=== PATIENT | male | born 1950 | race Caucasian/White ===

== ENCOUNTER 2023-12-10 21:26 | Inpatient (IN) | payer MEDICARE, MEDICAID, SELFPAY ==
[2023-12-10] VITALS (11 sets, daily range): BP systolic 76–107; BP diastolic 55–66; PULSE 93–104; RESP 14–24; TEMP 35.4; O2SAT 92–99; BMI 15.2
--- NOTE | 2023-12-10 21:34 | ECG_ITS ---
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 Measurements Intervals [place] Rate: 97 P: 72 KS: 149 QRS: 77 QRSD: 82 T: 73 QT: 350 QTc: 445 Interpretive Statements SINUS RHYTHM LEFT VENTRICULAR HYPERTROPHY AND ST-T CHANGE [VOLTAGE CRITERIA PLUS ST/T ABNORMALITY] No previous ECG available for comparison Electronically Signed On 12-11-2023 7:57:13 CDT by Bruce Romero M.D. [id number]
[2023-12-10 22:15] LABS: Basophils % 0.2 %; Lymphocytes # 0.2 10^3/uL (0.8-4.8); Lymphocytes % 1.3 %; Mean Corpuscular HGB Conc 33.7 g/dL (30-55); Mean Corpuscular Hemoglobin 33.2 pg (27-33); Mean Corpuscular Volume 98.5 fl (82-101); Mean Platelet Volume 9.2 fL (7.4-10.4); Monocytes # 0.7 10^3/uL (0.2-0.9); Monocytes % 4.8 %; Neutrophils % 93.4 %; Nucleated Red Blood Cells % 0.3 %; Platelet Count 330 10^3/cmm (157-399); Red Blood Count 2.74 10^6/uL (3.85-5.65); Red Cell Distribution Width 16.1 % (12.1-15.1)
--- NOTE | 2023-12-10 22:15 | W.ED.GIBLEED ---
HPI - GI Bleed General: Chief complaint: GI Bleed Stated complaint: Fall, Found Down Time Seen by Provider: 12/10/23 21:27 History of Present Illness: Patient presents to the ER by EMS from home. Patient was found on the floor by the granddaughter had not seen in about 12 days. Per EMS patient was weak, had a low blood pressure, and had a 1 bowel movement as a dark and tarry stool on route. Patient was given a total of 2 L before arrival here. Patient's blood pressure upon arrival was 76/57, pulse 97, Related Data Allergies Allergy/AdvReac Type Severity Reaction Status Date / Time Sulfa (Sulfonamide Allergy Unknown Verified 12/10/23 21:37 Antibiotics) Physical Exam Const: COMMON NORMALS: no acute distress, average body habitus, patient oriented x3, no limitations, healthy appearing, alert and well nourished HENMT: COMMON NORMALS: normocephalic, atraumatic, hearing grossly normal bilaterally, external ears normal, Normal external nose present and moist oral mucous membranes HEAD & SCALP: normocephalic and atraumatic NOSE: Normal external nose present EXTERNAL EAR: Yes external ears normal Eye: COMMON NORMALS: Equal, round and reactive pupils present, EOMs intact bilaterally, conjunctivae normal and no scleral icterus CONJUNCTIVA: Yes conjunctivae normal PUPIL: Yes Equal, round and reactive pupils present Neck/C-Spine: COMMON NORMALS: no JVD Chest: COMMONS NORMALS: normal inspection of the chest and normal palpation of entire chest wall Resp: COMMON NORMALS: normal respiratory effort, No retractions, No use of accessory muscles and clear to auscultation bilaterally AUSCULTATION: clear to auscultation bilaterally Cardio: COMMON NORMALS: no JVD, regular rate, regular rhythm, S1 normal heart sound present, S2 normal heart sound present, No gallops present (Cardio), No clicks present (Cardio), No murmurs present (Cardio) and No rub (Cardio) RATE: regular rate RHYTHM: regular rhythm HEART SOUNDS: S1 normal heart sound present and S2 normal heart sound present GI: COMMON NORMALS: Soft to palpation, No hepatosplenomegaly present and no masses; negative for non-tender (distended urinary bladder tender to palpate) PALPATION: Yes Soft to palpation and Yes No hepatosplenomegaly present Neuro: COMMON NORMALS: patient oriented x3 SENSORIUM/ORIENTATION: Yes alert Course Vital Signs: Vital signs: Vital Signs Temperature 95.7 F L 12/10/23 21:28 Pulse Rate 98 12/11/23 01:30 Respiratory Rate 18 12/11/23 01:30 Blood Pressure 84/59 12/11/23 01:30 Pulse Oximetry 95 12/11/23 01:30 Oxygen Delivery Me thod Room Air 12/11/23 00:00 MDM - GI Bleed Medical Decision Making Discussed this case with Dr. Mcdermott urology at [facility] he feels this is not a stent candidate patient he feels the hydronephrosis and hydroureter is probably from a distended bladder and probably a prostate issue and therefore a Santoyo catheter that is already been placed for initial time being. He says BUN/creatinine will more likely come down once the Santoyo catheter was placed. Discussed this case with Dr. Doshi we will place patient in ICU for further evaluation and treatment. Medical Records I reviewed the patient's medical records. Lab Data I reviewed the patient's lab results. 12/10/23 22:08 12/10/23 22:08 Radiology Impressions Chest/Abdomen/Pelvis CT 12/10/23 22:45 IMPRESSION: 1. Mild wall thickening involving the esophagus likely inflammatory. 2. COPD/emphysema. 3. Linear scarring or atelectasis involving the right upper lobe right middle lobe. 4. Tree-in-bud type opacity involving the right lower lobe likely inflammatory in origin. 5. Small pulmonary nodules bilaterally. For patients at low risk (minimal or absent history of smoking and of other known risk factors), no routine follow-up is indicated. For patients at high risk (history of smoking or of other known risk factors), consider optional CT Chest at 12 months. IMPRESSION: 1. Possible nodular wall thickening involving the rectum on the right laterally. If patient has not had a recent colonoscopy, further evaluation with endoscopy would be recommended. 2. Abnormal soft tissue in the presacral fat suspicious for tumor. There is also bilateral iliac chain and inguinal adenopathy likely pathologic. 3. Bilateral nephrolithiasis. 4. Bilateral mild hydronephrosis and hydroureter extending to a distended urinary bladder. There is a Santoyo catheter within the bladder. As well as a small bladder stone on the right. Head CT 12/10/23 23:03 IMPRESSION: 1. Negative for intracranial hemorrhage or mass effect. 2. Moderate diffuse white matter disease likely reflecting chronic microvascular ischemic changes. 3. Paranasal sinus opacification. Laboratory Results WBC 13.60 10^3/uL (3.29-11.43) H 12/10/23 22:08 RBC 2.74 10^6/uL (3.85-5.65) L 12/10/23 22:08 Hgb 9.10 g/dL (11.27-16.99) L 12/10/23 22:08 Hct 27.0 % (37-53) L 12/10/23 22:08 MCV 98.5 fl (82-101) 12/10/23 22:08 MCH 33.2 pg (27-33) H 12/10/23 22:08 MCHC 33.7 g/dL (30-55) 12/10/23 22:08 RDW 16.1 % (12.1-15.1) H 12/10/23 22:08 Plt Count 330 10^3/cmm (157-399) 12/10/23 22:08 MPV 9.2 fL (7.4-10.4) 12/10/23 22:08 Neut % (Auto) 93.4 % 12/10/23 22:08 Lymph % (Auto) 1.3 % 12/10/23 22:08 [place] % (Auto) 4.8 % 12/10/23 22:08 Eos % (Auto) 0.0 % 12/10/23 22:08 Baso % (Auto) 0.2 % 12/10/23 22:08 Neut # (Auto) 12.70 10^3/uL (1.8-7.7) H 12/10/23 22:08 Lymph # (Auto) 0.2 10^3/uL (0.8-4.8) L 12/10/23 22:08 [place] # (Auto) 0.7 10^3/uL (0.2-0.9) 12/10/23 22:08 Eos # (Auto) 0.0 10^3/uL (0.0-0.8) 12/10/23 22:08 Baso # (Auto) 0.0 10^3/uL (0.0-0.1) 12/10/23 22:08 Nucleated RBC % (auto) 0.3 % 12/10/23 22:08 Nucleated RBCs # 0.0 /100WBC 12/10/23 22:08 PT 15.30 SECONDS (12.1-14.9) H 12/10/23 22:08 INR 1.17 (0.8-1.2) 12/10/23 22:08 Sodium 152 mmol/L (136-145) H 12/10/23 22:08 Potassium 4.7 mmol/L (3.5-5.1) 12/10/23 22:08 Chloride 113 mmol/L (98-107) H 12/10/23 22:08 Carbon Dioxide 19 mmol/L (22-29) L 12/10/23 22:08 Anion Gap 24.7 (5-19) H 12/10/23 22:08 BUN 160 mg/dL (8-23) H* 12/10/23 22:08 Creatinine 7.8 mg/dL (0.7-1.2) H* 12/10/23 22:08 GFR Calculation Not Reportable 12/10/23 22:08 Glucose 98 mg/dL (65-115) 12/10/23 22:08 Calculated Osmolality 367 mOsm/kg (285-295) H 12/10/23 22:08 Lactic Acid 1.1 mmol/L (0.5-2.2) 12/10/23 22:08 Calcium 9.7 mg/dL (8.5-10.5) 12/10/23 22:08 Phosphorus 5.9 mg/dL (2.5-4.5) H 12/10/23 22:08 Magnesium 3.1 mg/dL (1.7-2.3) H 12/10/23 22:08 Total Bilirubin 0.4 mg/dL (0.15-1.2) 12/10/23 22:08 AST 35 U/L (0-40) 12/10/23 22:08 ALT 21 U/L (0-41) 12/10/23 22:08 Alkaline Phosphatase 53 U/L (40-130) 12/10/23 22:08 Creatine Kinase 600 U/L (39-308) H* 12/10/23 22:08 Troponin T Baseline 216 ng/L (0-15) H* 12/10/23 22:08 Troponin T 120 Minute 212.8 ng/L (0-15) H 12/11/23 00:24 Delta Troponin T -3.2 ABS# (0-10) L 12/11/23 00:24 Total Protein 5.5 g/dL (6.6-8.7) L 12/10/23 22:08 Albumin 3.0 g/dL (3.5-5.2) L 12/10/23 22:08 Globulin 2.5 g/dL (1.3-4.6) 12/10/23 22:08 Procalcitonin 0.43 ng/mL (0-0.5) 12/10/23 22:08 Urine Color Yellow (Yellow) 12/10/23 22:08 Urine Appearance Slightly cloudy (CLEAR) 12/10/23 22:08 Urine pH 5 (5-7) 12/10/23 22:08 Ur Specific [place] 1.020 (1.005-1.030) 12/10/23 22:08 Urine Protein Neg (Negative) 12/10/23 22:08 Urine Glucose (UA) Norm (Normal) 12/10/23 22:08 Urine Ketones 1+ (Negative) H 12/10/23 22:08 Urine Blood 3+ (Negative) H 12/10/23 22:08 Urine Nitrate Negative (Negative) 12/10/23 22:08 Urine Bilirubin Neg (Negative) 12/10/23 22:08 Urine Urobilinogen Neg mg/dL (Negative) 12/10/23 22:08 Ur Leukocyte Esterase Negative (Negative) 12/10/23 22:08 Urine RBC 25-40 /hpf (0-2) H 12/10/23 22:08 Urine WBC 5-10 /hpf (0-5) H 12/10/23 22:08 Ur Squamous Epith Cells None /hpf (0-5) 12/10/23 22:08 Amorphous Sediment Not Reportable 12/10/23 22:08 Urine Bacteria None /hpf (NONE) 12/10/23 22:08 All radiology interpretation(s) finalized by discharge Discharge Plan Discharge Patient Disposition: Admitted As Inpatient Clinical Impression: Acute GI bleeding, Acute renal failure, Acute dehydration, Hypernatremia, Anemia, Rhabdomyolysis, Elevated troponin Condition: Stable Coding Level of Care Code ED Seismograph Supervisor for Hardik Underwood
[2023-12-10 22:28] LABS: Add Urine Microscopic? YES; Bilirubin Urine Neg (Negative); Blood Urine 3+ (Negative); Glucose Urine UA Norm (Normal); Ketones Urine 1+ (Negative); Leukocyte Esterase Urine Negative (Negative); Nitrate Urine Negative (Negative); Protein Urine Neg (Negative); RBC Urine 25-40 /hpf (0-2); Urine Appearance Slightly Cloudy (CLEAR); Urine Color Yellow (Yellow); Urobilinogen Urine Neg (Negative); pH Urine 5 (5-7)
[2023-12-10 22:29] LABS: Add Urine Culture? Yes
[2023-12-10 22:35] LABS: Alanine Aminotransferase 21 U/L (0-41); Alkaline Phosphatase 53 U/L (40-130); Anion Gap 24.7 (5-19); Aspartate Amino Transferase 35 U/L (0-40); Calcium 9.7 mg/dL (8.5-10.5); Carbon Dioxide 19 mmol/L (22-29); Chloride 113 mmol/L (98-107); Globulin 2.5 g/dL (1.3-4.6); Glucose 98 mg/dL (65-115); Magnesium 3.1 mg/dL (1.7-2.3); Phosphorus 5.9 mg/dL (2.5-4.5); Potassium 4.7 mmol/L (3.5-5.1); Sodium 152 mmol/L (136-145); Total Bilirubin 0.4 mg/dL (0.15-1.2); Total Protein 5.5 g/dL (6.6-8.7)
[2023-12-10 22:37] LABS: Lactic Sepsis W/Reflex 1.1 mmol/L (0.5-2.2)
[2023-12-10 22:41] LABS: Creatine Phosphokinase 600 U/L (39-308); Troponin(5th) Baseline 216 ng/L (0-15)
[2023-12-10 22:42] LABS: Procalcitonin 0.43 ng/mL (0-0.5)
--- NOTE | 2023-12-10 22:45 | CTR_ITS ---
PROCEDURE INFORMATION: Exam: CT Chest Without Contrast; Diagnostic Exam date and time: 12/10/2023 11:09 PM Age: 73 years old Clinical indication: Other: Anemia; Other: Hypotensiom; Additional info: Anemia, gi bleed, acute renal failure, hypotension TECHNIQUE: Imaging protocol: Diagnostic computed tomography of the chest without contrast. Radiation optimization: All CT scans at this facility use at least one of these dose optimization techniques: automated exposure control; mA and/or kV adjustment per patient size (includes targeted exams where dose is matched to clinical indication); or iterative reconstruction. COMPARISON: No relevant prior studies available. RADIATION DOSE METRICS: Total DLP (mGy-cm): 422 FINDINGS: Lungs: There are changes of COPD/emphysema. There is linear scarring or atelectasis involving the right upper lobe and right middle lobe. There is tree-in-bud type opacity involving the right lower lobe likely inflammatory in nature. There is a pulmonary nodule involving the right lower lobe (series 3 image 36) measuring 3 mm in size. There is a fissural nodule involving the left lower lung measuring 5.3 mm in size (series 3, image 32). Pleural spaces: Unremarkable. No pneumothorax. No pleural effusion. Heart: Unremarkable. No cardiomegaly. No pericardial effusion. Esophagus: There is mild wall thickening involving the esophagus likely inflammatory. Lymph nodes: There are a few calcified mediastinal and hilar lymph nodes. Vasculature: The thoracic aorta is normal in caliber. There is calcified plaque involving the aorta and coronary vessels. Bones/joints: Unremarkable. No acute fracture. Soft tissues: Unremarkable. (Reference: Tanya) References: Tanya Tidwell, et al. Guidelines for Management of Incidental Pulmonary Nodules Detected on CT Images: From the Fleischner Society 2017. Radiology. 2017;284(1):228-243. COMMENTS: The presence of pulmonary emphysema on CT is an independent risk factor for lung cancer. In the absence of a history or active diagnosis of lung cancer, it is recommended that this patient with emphysema be evaluated for enrollment in a low dose CT lung cancer screening program. PROCEDURE INFORMATION: Exam: CT Abdomen And Pelvis Without Contrast Exam date and time: 12/10/2023 11:09 PM Age: 73 years old Clinical indication: Other: Anemia; Other: Hypotensiom; Additional info: Anemia, gi bleed, acute renal failure, hypotension TECHNIQUE: Imaging protocol: Computed tomography of the abdomen and pelvis without contrast. Radiation optimization: All CT scans at this facility use at least one of these dose optimization techniques: automated exposure control; mA and/or kV adjustment per patient size (includes targeted exams where dose is matched to clinical indication); or iterative reconstruction. COMPARISON: No relevant prior studies available. RADIATION DOSE METRICS: Total DLP (mGy-cm): 422 FINDINGS: Lungs: Please see report from CT thorax exam performed on same day for findings within the lower chest. Liver: Normal. No mass. Gallbladder and biliary ducts: Normal. No calcified stones. No ductal dilation. Pancreas: Normal. No ductal dilation. Spleen: Normal. No splenomegaly. Adrenal glands: Normal. No mass. Kidneys and ureters: There are bilateral nonobstructing renal calculi. There is mild hydronephrosis and hydroureter extending to a distended urinary bladder. Stomach and bowel: There are a few scattered colonic diverticula. No dilated loops of large or small bowel is appreciated. There may be nodular thickening involving the right lateral aspect of the rectum. If patient has not had a recent colonoscopy, further evaluation with colonoscopy or sigmoidoscopy would be recommended. Appendix: No evidence of appendicitis. Intraperitoneal space: Unremarkable. No free air. No significant fluid collection. Vasculature: Unremarkable. No abdominal aortic aneurysm. Lymph nodes: There is retroperitoneal and bilateral iliac chain adenopathy likely malignant. Urinary bladder: There is a Santoyo catheter within the urinary bladder. There may be a small 1 mm stone layering within the urinary bladder on the right. Reproductive: Unremarkable as visualized. Bones/joints: There are postoperative changes involving the proximal right femur. There are compression deformities involving T12 and L1 no blastic or lytic bony lesions are appreciated. Soft tissues: There is abnormal nodular soft tissue in the pre sacral soft tissues suspicious for tumor. CT/[place] [id number] IMPRESSION: 1. Mild wall thickening involving the esophagus likely inflammatory. 2. COPD/emphysema. 3. Linear scarring or atelectasis involving the right upper lobe right middle lobe. 4. Tree-in-bud type opacity involving the right lower lobe likely inflammatory in origin. 5. Small pulmonary nodules bilaterally. For patients at low risk (minimal or absent history of smoking and of other known risk factors), no routine follow-up is indicated. For patients at high risk (history of smoking or of other known risk factors), consider optional CT Chest at 12 months. IMPRESSION: 1. Possible nodular wall thickening involving the rectum on the right laterally. If patient has not had a recent colonoscopy, further evaluation with endoscopy would be recommended. 2. Abnormal soft tissue in the presacral fat suspicious for tumor. There is also bilateral iliac chain and inguinal adenopathy likely pathologic. 3. Bilateral nephrolithiasis. 4. Bilateral mild hydronephrosis and hydroureter extending to a distended urinary bladder. There is a Santoyo catheter within the bladder. As well as a small bladder stone on the right.
[2023-12-10 22:47] LABS: Osmolality Calculated 367 mOsm/kg (285-295)
[2023-12-10 22:48] LABS: Blood Urea Nitrogen 160 mg/dL (8-23)
[2023-12-10 22:50] LABS: INR 1.17 (0.8-1.2)
--- NOTE | 2023-12-10 23:03 | CTR_ITS ---
PROCEDURE INFORMATION: Exam: CT Head Without Contrast Exam date and time: 12/10/2023 11:06 PM Age: 73 years old Clinical indication: Altered mental status/memory loss; Additional info: AMS fall TECHNIQUE: Imaging protocol: Computed tomography of the head without contrast. Radiation optimization: All CT scans at this facility use at least one of these dose optimization techniques: automated exposure control; mA and/or kV adjustment per patient size (includes targeted exams where dose is matched to clinical indication); or iterative reconstruction. COMPARISON: No relevant prior studies available. RADIATION DOSE METRICS: Total DLP (mGy-cm): 1044 FINDINGS: Brain: Moderate diffuse white matter disease likely reflecting chronic microvascular ischemic changes. Cerebral ventricles: No ventriculomegaly. Paranasal sinuses: Paranasal sinus opacification. Mastoid air cells: Visualized mastoid air cells are well aerated. Bones: Unremarkable. No acute fracture. Soft tissues: Unremarkable. CT/CT head wo con* [id number] IMPRESSION: 1. Negative for intracranial hemorrhage or mass effect. 2. Moderate diffuse white matter disease likely reflecting chronic microvascular ischemic changes. 3. Paranasal sinus opacification.
[2023-12-11] VITALS (62 sets, daily range): BP systolic 75–125; BP diastolic 44–77; PULSE 77–106; RESP 12–28; TEMP 36–36.6; O2SAT 95–100; BMI 16.2
[2023-12-11 01:26] LABS: Troponin 5 2HR Delta -3.2 ABS# (0-10)
[2023-12-11 01:27] LABS: Troponin 5 2HR 212.8 ng/L (0-15)
--- NOTE | 2023-12-11 02:13 | PM.HP ---
Providers/Chief Complaint Admitting Physician: Bteito Arellano MD Chief Complaint: Fall, Found Down History of Present Illness Bharat Buckley is a 73 year old male with a past medical history of HIV, history taking is difficult given patient's encephalopathy, deconditioning, who presents to [facility] for weakness, fatigue, malaise, being on the ground for possibly an entire week. Currently patient alert to person, not to place, to time, at times she does not follow commands, history taking is quite difficult as he is quite encephalopathic deconditioned very weak. He can answer yes or no questions at times but at other times she is quite encephalopathic, and confused. I cannot get a past medical history from him except that he says yes that he has HIV. He is not exactly clear if he is on treatment, and I cannot get as straightforward answer from him. I cannot get a past surgical history or family history or social history from him. There is no family members at bedside. According to ER provider, he has been on the ground for a prolonged period of time potentially a week. Patient lives at home with his , his daughter has not seen the family in over a week as she was on vacation. As per EMS, he had low blood pressures 1 dark tarry bowel movement. Was given 2 L bolus before arriving to ER. Blood pressure on arrival was 76/56, pulse is 97 Review of Systems General: Reports: ROS unobtainable due to mental status Medications/Allergies Allergies Allergy/AdvReac Type Severity Reaction Status Date / Time Sulfa (Sulfonamide Allergy Unknown Verified 12/10/23 21:37 Antibiotics) Vitals/I&O/Wt Last Vital Signs Temp 95.7 F L 12/10/23 21:28 Pulse 98 12/11/23 02:00 Resp 20 H 12/11/23 02:00 BP 96/58 12/11/23 02:00 Pulse Ox 98 12/11/23 02:00 O2 Del Method Room Air 12/11/23 02:00 Weight last 48 hrs Weight 45.359 kg Physical Exam Const: COMMON NORMALS: no acute distress OTHER: Evidence of severe protein calorie malnutrition, bilateral temporal muscle wasting, muscle wasting of bilateral arms, bilateral shoulders, bilateral thighs, fat pad thickening bilateral clavicles, ribs, HENMT: COMMON NORMALS: normocephalic HEAD & SCALP: normocephalic Eye: COMMON NORMALS: Equal, round and reactive pupils present Neck/C-Spine: COMMON NORMALS: no JVD Resp: COMMON NORMALS: normal respiratory effort, No retractions, No use of accessory muscles and clear to auscultation bilaterally AUSCULTATION: clear to auscultation bilaterally Cardio: COMMON NORMALS: no JVD, regular rate, regular rhythm, S1 normal heart sound present and S2 normal heart sound present RATE: regular rate RHYTHM: regular rhythm HEART SOUNDS: S1 normal heart sound present and S2 normal heart sound present GI: COMMON NORMALS: Normal to inspection, nondistended, normoactive bowel sounds present, Soft to palpation and non-tender Extremity: COMMON NORMALS: no calf tenderness and no pedal edema Urinary Catheter Management: Santoyo Latex: Cath Placed During This Visit: yes Urinary Catheter Date of Insertion: 12/10/23 Urinary Catheter Time of Insertion: 21:50 Data 12/10/23 22:08 12/10/23 22:08 Micro: Microbiology 12/10/23 22:32 Blood Culture - Preliminary Blood SPECIMEN COLLECTED 12/10/23 22:27 Blood Culture - Preliminary Blood SPECIMEN COLLECTED A&P Assessment and plan (1) Elevated troponin: (2) GI bleed: (3) Acute renal failure: Qualifiers: Acute renal failure type: unspecified Qualified Code(s): N17.9 - Acute kidney failure, unspecified (4) Acute dehydration: (5) Hypernatremia: (6) Anemia: Qualifiers: Anemia type: unspecified type Qualified Code(s): D64.9 - Anemia, unspecified (7) Rhabdomyolysis: Qualifiers: Encounter type: initial encounter (8) HIV disease: (9) UTI (urinary tract infection): (10) Encephalopathy: (11) Uremia: (12) Metabolic acidosis: Plan Acute encephalopathy ? This likely multifactorial ? Likely secondary to UTI ? Likely secondary to uremic encephalopathy -Hypernatremia ? Neurochecks ? NIH stroke scale ? Aspiration precautions ? Keep n.p.o. Uremic encephalopathy Acute renal failure, creatinine 7.8 ? Multifactorial ? Secondary to dehydration ? Secondary to fall ? Secondary to BPH, distended bladder, postobstructive ? Monitor creatinine, monitor uremia ? Continue IV fluids ? Monitor urine output ? Will consider discussing with nephrology Bilateral nonobstructing renal colliculi, with mild hydronephrosis and hydroureter Kidneys and ureters: There are bilateral nonobstructing renal calculi. There is mild hydronephrosis and hydroureter extending to a distended urinary bladder. - Bilateral nephrolithiasis ?These findings were discussed with urology by ER provider, recommended medical management Acute hypernatremia ? Secondary dehydration Metabolic acidosis -Likely secondary to renal failure ? Continue IV fluids Acute GI bleed ? With uremia ? With no anemia -Black tarry stool -CT scan shows 1. Possible nodular wall thickening involving the rectum on the right laterally. If patient has not had a recent colonoscopy, further evaluation with endoscopy would be recommended. 2. Abnormal soft tissue in the presacral fat suspicious for tumor. There is also bilateral iliac chain and inguinal adenopathy likely pathologic. ? Plan ? Continue Protonix 40 IV twice daily -Continue Carafate ? Continue IV fluids ? Continue IV fluids ? Keep n.p.o. UTI, continue Rocephin History of HIV ? Unsure if patient is receiving treatment, his last CD4 count ? Obtain CD4 count, ? Will reach out to patient's family pharmacy in the morning Rhabdomyolysis, IV fluids . Elevated troponins, serial EKGs, serial troponins, telemetry monitoring Full code As for DVT prophylaxis, Lovenox relatively contraindicated given GI bleed Attestations Medical Necessity Statement*: Patient requires hospitalization, inpatient, greater than 2 midnights for acute kiko, UTI al failure, uremia, metabolic acidosis, acute anemia, hyponatremia, acute GI bleed, anemia, acute encephalopathy Diagnoses Elevated troponin R79.89 GI bleed K92.2 Acute renal failure N17.9 Acute renal failure type: unspecified Acute dehydration E86.0 Hypernatremia E87.0 Anemia D64.9 Anemia type: unspecified type Rhabdomyolysis M62.82 Encounter type: initial encounter HIV disease B20 UTI (urinary tract infection) N39.0 Encephalopathy G93.40 Uremia N19 Metabolic acidosis E87.20
--- NOTE | 2023-12-11 02:44 | US_ITS ---
WS: [id number] RENAL ULTRASOUND HISTORY: tyler COMPARISON: CT 12/10/2023 TECHNIQUE: 2-D and color Doppler imaging of the kidney submitted. Right kidney: 10.2 cm x 3.0 cm x 3.3 cm. Cortex: 0.7 cm Increased echogenicity with cortical thinning. There is a small amount of fluid in the pelvis. No troy ss hydronephrosis. Left kidney: 9.6 cm x 3.7 cm x 4.8 cm. Cortex: 1.5 cm Mildly enlarged kidney with mild hydronephrosis. Increased echogenicity throughout the kidney with a lobulated cortex. Aorta: Normal. Urinary Bladder: Santoyo catheter in position. Urinary bladder is not distended. US/US renal BI* [id number] IMPRESSION: 1. Chronic medical renal disease. Echogenic kidneys with no mass identified. 2. Mild LEFT hydronephrosis. Minimal splitting of the RIGHT renal pelvis. The hydronephrosis seen on the CT has decreased as visualized by ultrasound. This m ay be due to catheterization and emptying of the urinary bladder.
--- NOTE | 2023-12-11 02:44 | USCV_ITS ---
Bharat Buckley Age: 73 Gender: M : 1950 Exam Date: 12/11/2023 07:26 Ordering Phys: Betito Arellano MD Technologist: Exam Location: [facility] [place] Indication: nstemi BP: 96 / 50 HR: 72 Rhythm: Sinus Technical Quality: Adequate MEASUREMENTS (Male / Female) Normal Values 2D ECHO LV Diastolic Diameter PLAX 2.8 cm 4.2 - 5.9 / 3.9 - 5.3 cm IVS Diastolic Thickness 1.1 cm 0.6 - 1.0 / 0.6 - 0.9 cm IVS Systolic Thickness 1.1 cm LVPW Diastolic Thickness 1.0 cm 0.6 - 1.0 / 0.6 - 0.9 cm LVPW Systolic Thickness 1.4 cm LVOT Diameter 2.1 cm LV Ejection Fraction 2D Teich 76.2 % LV Ejection Fraction MOD 4C 76.7 % LV Ejection Fraction MOD 2C 63.9 % LV Ejection Fraction 2C AL 63.5 % LA Diameter 2.9 cm RA Systolic Volume 4C AL 19.1 ml RA Systolic Volume 4C MOD 17.5 ml Aorta at Sinotubular Diameter 2.6 cm M-MODE LA Ao Ratio MM 1.1 AV Cusp Separation MM 2.6 cm DOPPLER AV Peak Velocity 207.0 cm/s MV Peak Velocity 256.7 cm/s MV Area PHT 5.1 cm squared Mitral E to A Ratio 0.7 TR Peak Velocity 395.0 cm/s TR Peak Gradient 62.4 mmHg TV Peak E Velocity 150.0 cm/s Right Atrial Pressure 3.0 mmHg Pulmonary Artery Systolic Pressu 65.4 mmHg FINDINGS Left Ventricle Normal left ventricular size and systolic function, EF 77% .mild left ventricular hypertrophy. No regional wall motion abnormalities. Grade I/IV diastolic dysfunction (abnormal relaxation filling pattern), normal to mildly elevated filling pressures. Right Ventricle The right ventricle is normal in size and function. Right Atrium The right atrium is normal in size. Left Atrium Mildly increased left atrial size. Mitral Valve Moderate-severe mitral valve regurgitation. The leaflets appear to be redundant Aortic Valve Mild aortic valve regurgitation. Tricuspid Valve No gross abnormalities noted Pulmonic Valve No gross abnormalities noted Pericardium Normal pericardium without effusion. Aorta Normal ascending aorta dimension. IVC Inferior vena cava not visualized. CONCLUSIONS Normal left ventricular size and systolic function, EF 77% .mild left ventricular hypertrophy. No regional wall motion abnormalities. Grade I/IV diastolic dysfunction (abnormal relaxation filling pattern), normal to mildly elevated filling pressures. Moderate-severe mitral valve regurgitation. Mitral leaflets appear redundant. Mildly increased left atrial size. There is no pericardial effusion. There are no intracardiac masses. No similar previous studies are available for comparison Dr Stacey Randolph MD [facility] (Electronically Signed) Final Date: 11 December 2023 13:31 S
[2023-12-11 02:54] LABS: Erythrocyte Sedimentation Rate 25 mm/hr (0-10)
[2023-12-11 03:01] LABS: Partial Thromboplastin Time 32.4 SECONDS (23.9-36.7)
[2023-12-11 03:22] LABS: Chol HDL Ratio 3.21 mg/dL (1.0-5.00); Cholesterol 109 mg/dL (0-200); HDL Cholesterol 34 mg/dL (60-100); LDL Cholesterol Calculated 49 mg/dL (50-129); LDL HDL Ratio 1.44 RATIO (0.00-3.22); Thyroid Stimulating Hormone 1.38 uIU/mL (0.27-4.20); Triglycerides 128 mg/dL (0-150)
[2023-12-11 03:23] LABS: Creatine Phosphokinase 818 U/L (39-308)
[2023-12-11 03:27] LABS: Estmated Average Glucose 105; Hemoglobin A1C 5.3 % (4.0-6.0)
[2023-12-11] MEDS: cefTRIAXone 1,000 mg SDV 1000 MG IVP (03:34)
[2023-12-11] MEDS: pantoprazole 40 mg SDV IVP ×2 (03:34→14:15)
[2023-12-11] MEDS: dextrose 5%-sod chloride 0.9% 1,000 ML 125 ML IV (03:34)
--- NOTE | 2023-12-11 03:34 | ECG_ITS ---
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 Measurements Intervals [place] Rate: 98 P: 76 MD: 156 QRS: 81 QRSD: 78 T: 85 QT: 336 QTc: 430 Interpretive Statements SINUS RHYTHM WITH OCCASIONAL SUPRAVENTRICULAR PREMATURE COMPLEXES MODERATE VOLTAGE CRITERIA FOR LVH, CONSIDER NORMAL VARIANT [MEETS CRITERIA IN ONE OF: R(aVL), S(V1), R(V5), R(V5/V6)+S(V1)] Compared to ECG 12/10/2023 22:09:15 ST (T wave) deviation no longer present Electronically Signed On 12-11-2023 7:58:49 CDT by Bruce Romero M.D. [email or web address]
[2023-12-11] MEDS: sucralfate 1 gm/10 mL Oral Liq UDC PO ×4 (03:35→19:44)
[2023-12-11 03:38] LABS: Hepatitis A Antibody IgM Non-Reactive (Nonreactive); Hepatitis B Core IgM Non-Reactive (Nonreactive); Hepatitis B Surface Antigen Non-Reactive (Nonreactive); Hepatitis C Virus Antibody Non-Reactive (Nonreactive)
[2023-12-11 04:07] LABS: HIV 1 & 2 Antibody Reactive (Non-Reactiv); HIV 1 & 2 Antigen Non-Reactive (Non-Reactiv)
[2023-12-11 04:31] LABS: Troponin 5 6HR Delta 7.8 ng/L (0-12)
[2023-12-11 05:01] LABS: Troponin 5 6HR 223.8 ng/L (0-15)
[2023-12-11] MEDS: sodium chloride 0.9% 500 ML 999 ML IV (06:14)
--- NOTE | 2023-12-11 06:44 | PC.NURSE ---
Contacted Dr. Arellano aprox. 0600 in reference to patient's declining BP and MAP 60-65 for several readings. Informed Dr. Arellano that stroke volume index 29.7% as measured with Cheetah device. Received orders for 500mL NS bolus now.
[2023-12-11 09:31] LABS: Hematocrit 25.5 % (37-53)
[2023-12-11] MEDS: dextrose 5%-sod chloride 0.45% 1,000 ML 100 ML IV ×2 (09:35→19:41)
[2023-12-11] MEDS: piperacillin-tazobactam 3.375 GM in sodium chloride 0.9% (plus) 50 ML IV ×2 (09:38→21:05)
[2023-12-11 09:58] LABS: Sodium 163 mmol/L (136-145)
--- NOTE | 2023-12-11 10:10 | ANES.PREANE2 ---
Pre-Anesthetic Assessment Height/Weight: Height 5 ft 3 in Weight 91 lb 7.869 oz Temp Pulse Resp BP Pulse Ox O2 Del Method 96.8 F L 95 25 H 82/59 99 Room Air 12/11/23 09:39 12/11/23 08:30 12/11/23 08:30 12/11/23 08:30 12/11/23 08:30 12/11/23 08:30 Preop Diagnosis: Concern for GI bleed Operation Date: 12/11/23 12:15 Proposed Procedures p EGD with possible bleeding control(Not Applicable) - Corwin Muhammad MD Anesthetic Plan ASA status: 4 Anesthesia: MAC Other: Patient has a history of HIV Current encephalopathy/deconditioning. Patient was found on the ground, possibly for an entire week Hard to get a history on the patient Labs reviewed, hemoglobin 8.4, sodium 163. Creatinine 7.8, BUN 160, CK8 18. Patient has elevated troponins EKG showing sinus rhythm with PVCs Medications/Allergies Home Medications Medication Instructions Recorded Confirmed Last Taken Type abacavir 600 mg-dolutegravir 50 1 tab PO DAILY 12/11/23 12/11/23 Unknown History mg-lamivudine 300 mg tablet (Triumeq) ezetimibe 10 mg tablet 10 mg PO DAILY 12/11/23 12/11/23 Unknown History fenofibrate nanocrystallized 145 145 mg PO DAILY 12/11/23 12/11/23 Unknown History mg tablet lisinopril 10 mg tablet 10 mg PO DAILY 12/11/23 12/11/23 Unknown History Allergies Allergy/AdvReac Type Severity Reaction Status Date / Time Sulfa (Sulfonamide Allergy Unknown Verified 12/10/23 21:37 Antibiotics) Current Medications Generic Name Dose Route Start Last Admin Trade Name Freq PRN Reason Stop Dose Admin Ceftriaxone Sodium 1,000 mg 12/11/23 02:44 12/11/23 03:34 Ceftriaxone 1,000 Mg Sdv IVP 1,000 mg Q24H BYRON Administration Protocol Dextrose/Sodium Chloride 1,000 mls @ 100 mls/hr 12/11/23 09:00 12/11/23 09:35 Dextrose 5%-Sod Chloride 0.45% IV 100 mls/hr .Q10H BYRON Administration Piperacillin Sod/Tazobactam 50 mls @ 12.5 mls/hr 12/11/23 09:15 12/11/23 09:38 Sod 3.375 gm/ Sodium Chloride IV 12.5 mls/hr Q12H BYRON Administration Pantoprazole Sodium 40 mg 12/11/23 02:44 12/11/23 03:34 Pantoprazole 40 Mg Sdv IVP 40 mg Q12H BYRON Administration Sucralfate 1 gm 12/11/23 02:44 12/11/23 09:17 Sucralfate 1 Gm/10 Ml Oral Liq Udc PO 1 gm Q6H BYRON Administration Data Anesthesia 12/11/23 09:10 12/11/23 09:10 Short CBC 12/10/23 12/11/23 Range/Units 22:08 09:10 WBC 13.60 H (3.29-11.43) 10^3/uL Hgb 9.10 L 8.40 L (11.27-16.99) g/dL Hct 27.0 L 25.5 L (37-53) % MCV 98.5 (82-101) fl Plt Count 330 (157-399) 10^3/cmm Neut % (Auto) 93.4 % Neut # (Auto) 12.70 H (1.8-7.7) 10^3/uL BMP 12/10/23 12/11/23 22:08 09:10 Sodium 152 H 163 H* Potassium 4.7 Chloride 113 H Carbon Dioxide 19 L BUN 160 H* Creatinine 7.8 H* Glucose 98 Calcium 9.7 Cardiac Enzymes 12/10/23 12/11/23 12/11/23 Range/Units 22:08 00:24 02:19 Creatine Kinase 600 H* 818 H* (39-308) U/L Troponin T Baseline 216 H* (0-15) ng/L Troponin T 120 Minute 212.8 H (0-15) ng/L Delta Troponin T -3.2 L (0-10) ABS# Troponin T Hi Sens 6Hr (0-15) ng/L Troponin T Hi Sens 6Hr Delta (0-12) ng/L 12/11/23 Range/Units 03:55 Creatine Kinase (39-308) U/L Troponin T Baseline (0-15) ng/L Troponin T 120 Minute (0-15) ng/L Delta Troponin T (0-10) ABS# Troponin T Hi Sens 6Hr 223.8 H (0-15) ng/L Troponin T Hi Sens 6Hr Delta 7.8 (0-12) ng/L Liver Function 12/10/23 Range/Units 22:08 Total Bilirubin 0.4 (0.15-1.2) mg/dL AST 35 (0-40) U/L ALT 21 (0-41) U/L Alkaline Phosphatase 53 (40-130) U/L Albumin 3.0 L (3.5-5.2) g/dL Urine 12/10/23 Range/Units 22:08 Urine Color Yellow (Yellow) Urine Appearance Slightly cloudy (CLEAR) Urine pH 5 (5-7) Ur Specific [place] 1.020 (1.005-1.030) Urine Protein Neg (Negative) Urine Glucose (UA) Norm (Normal) Urine Ketones 1+ H (Negative) Urine Nitrate Negative (Negative) Urine Bilirubin Neg (Negative) Ur Leukocyte Esterase Negative (Negative) Urine RBC 25-40 H (0-2) /hpf Urine WBC 5-10 H (0-5) /hpf Coags 12/10/23 12/11/23 22:08 02:19 ESR 25 H PT 15.30 H 15.60 H INR 1.17 1.20 APTT 32.4 C-Reactive Protein 86.0 H Microbiology 12/10/23 22:32 Blood Culture - Preliminary Blood SPECIMEN COLLECTED 12/10/23 22:27 Blood Culture - Preliminary Blood SPECIMEN COLLECTED Cardiac Studies: No Data to Display
--- NOTE | 2023-12-11 10:25 | PC.NURSE ---
GI lab, [facility], called and given report on patient. Nurse attempted to called patient's daughter, PAZ left.
[2023-12-11 11:05] LABS: Calcium 9.1 mg/dL (8.5-10.5); Carbon Dioxide 19 mmol/L (22-29); Chloride 129 mmol/L (98-107); Glucose 123 mg/dL (65-115)
--- NOTE | 2023-12-11 11:12 | PC.NURSE ---
Consent for EGD obtained via phone from daughter.
[2023-12-11 11:18] LABS: Anion Gap 16.7 (5-19); Osmolality Calculated 376 mOsm/kg (285-295); Potassium 3.7 mmol/L (3.5-5.1)
[2023-12-11 11:20] LABS: Blood Urea Nitrogen 131 mg/dL (8-23); Sodium 161 mmol/L (136-145)
--- NOTE | 2023-12-11 11:33 | P.CONIM_ITS ---
Providers/Reason For Consult 2 Consulting Physician/Specialty*: General surgery Reason for Consult*: Upper GI bleeding Attending Physician: Deana Grossman MD History of Present Illness History of Present Illness Bharat Buckley is a 73 year old male with history of HIV who presents to the hospital after being found down by family member, he is unsure how long the patient was down, he was noted to have acidosis and rhabdomyolysis upon arrival. In addition he had black tarry stools multiple times and according to the patient he had seen some blood in the stool in the past. A CAT scan of the abdomen pelvis done in the ED showed no evidence of active bleeding at the level of the GI tract there are some irregularity in the posterior rectum. Review of Systems 2 General: Reports: ROS unobtainable due to medical condition Medications/Allergies Home Medications Medication Instructions Recorded Confirmed Last Taken Type abacavir 600 mg-dolutegravir 50 1 tab PO DAILY 12/11/23 12/11/23 Unknown History mg-lamivudine 300 mg tablet (Triumeq) ezetimibe 10 mg tablet 10 mg PO DAILY 12/11/23 12/11/23 Unknown History fenofibrate nanocrystallized 145 145 mg PO DAILY 12/11/23 12/11/23 Unknown History mg tablet lisinopril 10 mg tablet 10 mg PO DAILY 12/11/23 12/11/23 Unknown History Allergies Allergy/AdvReac Type Severity Reaction Status Date / Time Sulfa (Sulfonamide Allergy Unknown Verified 12/10/23 21:37 Antibiotics) Current Medications Generic Name Dose Route Start Last Admin Trade Name Freq PRN Reason Stop Dose Admin Ceftriaxone Sodium 1,000 mg 12/11/23 02:44 12/11/23 03:34 Ceftriaxone 1,000 Mg Sdv IVP 1,000 mg Q24H BYRON Administration Protocol Dextrose/Sodium Chloride 1,000 mls @ 100 mls/hr 12/11/23 09:00 12/11/23 09:35 Dextrose 5%-Sod Chloride 0.45% IV 100 mls/hr .Q10H BYRON Administration Piperacillin Sod/Tazobactam 50 mls @ 12.5 mls/hr 12/11/23 09:15 12/11/23 09:38 Sod 3.375 gm/ Sodium Chloride IV 12.5 mls/hr Q12H BYRON Administration Pantoprazole Sodium 40 mg 12/11/23 02:44 12/11/23 03:34 Pantoprazole 40 Mg Sdv IVP 40 mg Q12H BYRON Administration Sucralfate 1 gm 12/11/23 02:44 12/11/23 09:17 Sucralfate 1 Gm/10 Ml Oral Liq Udc PO 1 gm Q6H BYRON Administration Vitals/I&O/Wt Last Vital Signs Temp 96.8 F L 12/11/23 09:39 Pulse 95 12/11/23 08:30 Resp 25 H 12/11/23 08:30 BP 82/59 12/11/23 08:30 Pulse Ox 99 12/11/23 08:30 O2 Del Method Room Air 12/11/23 08:30 12/10/23 12/11/23 12/11/23 22:59 06:59 14:59 Intake Total 1252.083 / 1252.083 Balance 1252.083 / 1252.083 Weight last 48 hrs Weight 91 lb 7.869 oz Weight 91 lb 7.869 oz Weight 100 lb Physical Exam 2 Narrative: Patient is alert, has difficulty answering questions. Abdominal exam is benign. He appears malnourished. Urinary Catheter Management: Santoyo Latex: Cath Placed During This Visit: yes Reason for Continuing Indwelling Catheter: Accurate Measurement of Urinary Output in Critically Ill Patients Urinary Catheter Date of Insertion: 12/10/23 Urinary Catheter Time of Insertion: 21:50 Data 12/11/23 09:10 12/11/23 10:29 Micro: Microbiology 12/10/23 22:32 Blood Culture - Preliminary Blood SPECIMEN COLLECTED 12/10/23 22:27 Blood Culture - Preliminary Blood SPECIMEN COLLECTED A&P Assessment and plan (1) Acute GI bleeding: (2) Elevated troponin: (3) Acute renal failure: Qualifiers: Acute renal failure type: unspecified Qualified Code(s): N17.9 - Acute kidney failure, unspecified (4) Hypernatremia: (5) HIV disease: Plan 73-year-old male with history of HIV who was found down in his house, upon admission he had metabolic acidosis, rhabdomyolysis and elevated troponins. He also was noted to have black tarry stools concerning for the possibility of upper GI bleeding. I have decided to offer the patient an upper endoscopy for evaluation for possible upper GI bleeding, I discussed all risk and benefits of the procedure with the patient who showed understanding and agreed to proceed, I also tried to contact the family member in order to inform her about the procedure but several attempts were made and patient's daughter was unable to be contacted. I have extensive discussion about the patient medical consult lesion with an anesthesia team. At this time they continued will be important to obtain the full cardiac workup and to trend troponins before proceeding with an EGD and therefore we will plan for procedure tomorrow rather than today. In the meantime we will continue with aggressive resuscitation, high-dose PPI and continue to trend hemoglobin. -EGD tomorrow -Can have clear liquid diet until then -High-dose PPI -IV fluids -Trend hemoglobin Coding Level of Care Code 98064 Diagnoses Acute GI bleeding K92.2 Elevated troponin R79.89 Acute renal failure N17.9 Acute renal failure type: unspecified Hypernatremia E87.0 HIV disease B20
[2023-12-11] MEDS: norepinephrine 4 MG/250 ML BAG 7.5 MG IV (11:59)
--- NOTE | 2023-12-11 12:36 | P.EN_ITS ---
Event Note Event Note: Spoke with anesthesia to wait until get echo report before proceeding with EGD Dr. Janet You was consulted for an EGD patient is still expressing dark- colored stools Patient is extremely concentrated I do believe his hemoglobin is way lower than 9 I have requested 1 unit PRBC, change IV fluids to D5 half-normal saline, and requested Levophed Patient is only able to answer simple questions Patient was asking if he could take a shower I will put him on Zosyn Rectal wall thickening notable to cystitis Currently afebrile Patient is stating that he fell 3 times in 1 week Not endorsing active chest pain or shortness of breath currently he is on room air sodium check q 4 h
--- NOTE | 2023-12-11 12:54 | PC.OT ---
HOLD OT EVALUATION PER DR HART
[2023-12-11 13:35] LABS: Sodium 163 mmol/L (136-145)
[2023-12-11 19:09] LABS: Hematocrit 34.6 % (37-53)
[2023-12-11 19:41] LABS: Sodium 162 mmol/L (136-145)
[2023-12-12] VITALS (75 sets, daily range): BP systolic 60–120; BP diastolic 29–80; PULSE 63–93; RESP 12–37; TEMP 36.6–37.1; O2SAT 91–100
[2023-12-12 01:08] LABS: Sodium 161 mmol/L (136-145)
[2023-12-12] MEDS: dextrose 5%-sod chloride 0.45% 1,000 ML 150 ML IV (01:53)
[2023-12-12] MEDS: sucralfate 1 gm/10 mL Oral Liq UDC PO ×4 (01:54→21:14)
[2023-12-12] MEDS: pantoprazole 40 mg SDV IVP ×2 (01:54→14:38)
[2023-12-12 03:42] LABS: Basophils % 0.3 %; Eosinophils # 0.1 10^3/uL (0.0-0.8); Eosinophils % 0.4 %; Hematocrit 38.3 % (37-53); Lymphocytes # 1.7 10^3/uL (0.8-4.8); Lymphocytes % 14.5 %; Mean Corpuscular HGB Conc 32.6 g/dL (30-55); Mean Corpuscular Hemoglobin 33.1 pg (27-33); Mean Corpuscular Volume 101.3 fl (82-101); Mean Platelet Volume 9.6 fL (7.4-10.4); Monocytes # 0.7 10^3/uL (0.2-0.9); Monocytes % 5.6 %; Neutrophils # 9.41 10^3/uL (1.8-7.7); Neutrophils % 78.8 %; Nucleated Red Blood Cells # 0.1 /100WBC; Nucleated Red Blood Cells % 0.8 %; Platelet Count 313 10^3/cmm (157-399); Red Blood Count 3.78 10^6/uL (3.85-5.65); Red Cell Distribution Width 16.6 % (12.1-15.1); White Blood Count 11.94 10^3/uL (3.29-11.43)
[2023-12-12 03:51] LABS: Alanine Aminotransferase 23 U/L (0-41); Albumin Level 2.5 g/dL (3.5-5.2); Alkaline Phosphatase 58 U/L (40-130); Aspartate Amino Transferase 56 U/L (0-40); Carbon Dioxide 20 mmol/L (22-29); Chloride 130 mmol/L (98-107); Creatinine Clr Calc Pharmacy 15.4808; Globulin 3.5 g/dL (1.3-4.6); Glucose 88 mg/dL (65-115); Osmolality Calculated 354 mOsm/kg (285-295); Sodium 160 mmol/L (136-145); Total Bilirubin 0.2 mg/dL (0.15-1.2)
[2023-12-12 04:03] LABS: Blood Urea Nitrogen 81 mg/dL (8-23)
[2023-12-12 08:44] LABS: Sodium 160 mmol/L (136-145)
[2023-12-12] MEDS: piperacillin-tazobactam 3.375 GM in sodium chloride 0.9% (plus) 50 ML IV ×2 (09:09→21:14)
[2023-12-12] MEDS: dextrose 5% 1,000 ML 100 ML IV ×2 (09:09→19:37)
[2023-12-12] MEDS: norepinephrine 4 MG/250 ML BAG 7.5 MG IV (09:11)
[2023-12-12 12:33] LABS: Sodium 159 mmol/L (136-145)
--- NOTE | 2023-12-12 12:41 | P.PN_ITS ---
Subjective 2 Subjective: Patient is on Levophed at 2 mics only Blood pressure improved Hemoglobin improved as well Patient is still experiencing dark-colored stools Plan for EGD today as per the nursing staff Patient is able to answer simple questions On room air Afebrile Continue IV fluids I have changed his fluids to D5 only check sodium every 4 hours Creatinine improving Vitals/I&O/Wt Last Vital Signs Temp 98.8 F 12/12/23 02:00 Pulse 74 12/12/23 09:45 Resp 17 12/12/23 09:45 BP 103/60 12/12/23 09:45 Pulse Ox 97 12/12/23 09:45 O2 Del Method Room Air 12/11/23 23:00 12/11/23 12/12/23 12/12/23 22:59 06:59 14:59 Intake Total 1464.917 / 2767.000 1168.75 / 3935.750 1023.875 / 1023.875 Output Total 2450 / 2450 875 / 3325 Balance -985.083 / 317.000 293.75 / 896.544 3445.875 / 1023.875 Weight last 48 hrs Weight 42 kg Weight 41.5 kg Weight 41.5 kg Weight 45.359 kg Physical Exam 2 Narrative: Patient is awake but lethargic Able to answer simple questions I do not see any focal deficit He is on room air Levophed at 2 mics running at the bedside Santoyo catheter in place Pleasant and cooperative No active abdominal pain Patient endorsing feeling slightly better S1, S2 sinus rhythm Abdomen not tender on palpation Urinary Catheter Management: Santoyo Latex: Cath Placed During This Visit: yes Reason for Continuing Indwelling Catheter: Accurate Measurement of Urinary Output in Critically Ill Patients Urinary Catheter Date of Insertion: 12/10/23 Urinary Catheter Time of Insertion: 21:50 Data 12/12/23 03:03 12/12/23 11:59 Micro: Microbiology 12/10/23 22:08 Urine Culture - Preliminary Urine,Clean Catch 12/10/23 22:32 Blood Culture - Preliminary Blood NEGATIVE TO DATE 12/10/23 22:27 Blood Culture - Preliminary Blood NEGATIVE TO DATE A&P Assessment and plan (1) Elevated troponin: (2) Acute GI bleeding: (3) GI bleed: (4) Acute renal failure: Qualifiers: Acute renal failure type: unspecified Qualified Code(s): N17.9 - Acute kidney failure, unspecified (5) Acute dehydration: (6) Hypernatremia: (7) Metabolic acidosis: (8) UTI (urinary tract infection): (9) HIV disease: (10) Rhabdomyolysis: Qualifiers: Encounter type: initial encounter (11) Encephalopathy: Plan Acute macrocytic anemia GI bleed anemia Melanotic stool Plan for EGD today Status post 1 unit PRBC Will request B12 and iron studies Severe dehydration with hypernatremia Continue fluids but changed to D5 instead of D5 normal saline check sodium every 4 hours Metabolic encephalopathy related to dehydration: Improving ZACKERY: Creatinine improving with IV fluid hydration Discontinue Santoyo catheter by end of the day versus tomorrow morning Diastolic CHF, troponin elevation likely type II SD ACS protocol not initiated secondary to anemia HIV positive continue HIV medications as creatinine has improved Family updated Full code Start GI soft diet after EGD today Continue Protonix and sucralfate Patient is deconditioned with sarcopenia severe protein calorie malnourishment May need care home placement, will discuss after PT/OT Hypovolemic shock we were able to wean off Levophed currently is on 2 mics improving with IV fluids Attestations 2 Medical Necessity Statement*: Out of ICU will do PT once off Levophed Diagnoses Elevated troponin R79.89 Acute GI bleeding K92.2 GI bleed K92.2 Acute renal failure N17.9 Acute renal failure type: unspecified Acute dehydration E86.0 Hypernatremia E87.0 Metabolic acidosis E87.20 UTI (urinary tract infection) N39.0 HIV disease B20 Rhabdomyolysis M62.82 Encounter type: initial encounter Encephalopathy G93.40
--- NOTE | 2023-12-12 13:11 | PC.SOCIAL ---
IMM Update pg 2 of IMM updated and reviewed w/ patient. Copy provided, copy dated, initialed and placed in chart.
[2023-12-12 13:17] LABS: Ferritin 302 ng/mL (30-400); Iron 22 ug/dL (59-158); Total Iron Binding Capacity 157 mcg/dl; Unsaturated Iron Binding 135 ug/dL (112-347)
--- NOTE | 2023-12-12 13:20 | PC.OT ---
PER DR REQUEST; HOLD OT EVALUATION AGAIN TODAY
[2023-12-12 13:32] LABS: Vitamin B12 1957 pg/mL (232-1245)
--- NOTE | 2023-12-12 14:39 | P.ANESUD_ITS ---
Pre-Anesthetic Update Pre-Anesthetic Assessment: Date of Surgery/Procedure: 12/12/23 Preop Winter gnosis: Concern for GI bleed Proposed Procedure: Operation Date: 12/12/23 15:00 Proposed Procedures p EGD with possible bleeding control(Not Applicable) - Corwin Muhammad MD Changes from Pre-Anesthetic Assessment: Labs reviewed today Sodium 159, potassium 4.0, BUN 81, creatinine 2.6 Echo performed yesterday showing EF 77% with mildly elevated filling pressures Levophed turned off by ICU, systolic 79. Will need Levophed IntraOp most likely Spoke to patient's daughter and she consents to anesthesia Labs Last 48hrs: Short CBC 12/10/23 12/11/23 12/11/23 Range/Units 22:08 09:10 18:56 WBC 13.60 H (3.29-11.43) 10^ 3/uL Hgb 9.10 L 8.40 L 11.50 D (11.27-16.99) g/ dL Hct 27.0 L 25.5 L 34.6 L D (37-53) % MCV 98.5 (82-101) fl Plt Count 330 (157-399) 10^3/c mm Neut % (Auto) 93.4 % Neut # (Auto) 12.70 H (1.8-7.7) 10^3/u L 12/12/23 Range/Units 03:03 WBC 11.94 H (3.29-11.43) 10^ 3/uL Hgb 12.50 (11.27-16.99) g/ dL Hct 38.3 (37-53) % MCV 101.3 H (82-101) fl Plt Count 313 (157-399) 10^3/c mm Neut % (Auto) 78.8 % Neut # (Auto) 9.41 H (1.8-7.7) 10^3/u L BMP 12/10/23 12/11/23 12/11/23 22:08 09:10 10:29 Sodium 152 H 163 H* 161 H* Potassium 4.7 3.7 Chloride 113 H 129 H Carbon Dioxide 19 L 19 L BUN 160 H* 131 H* Creatinine 7.8 H* 4.5 H Glucose 98 123 H Calcium 9.7 9.1 12/11/23 12/11/23 12/11/23 13:10 18:56 23:59 Sodium 163 H* 162 H* 161 H* Potassium Chloride Carbon Dioxide BUN Creatinine Glucose Calcium 12/12/23 12/12/23 12/12/23 03:03 08:17 11:59 Sodium 160 H 160 H 159 H Potassium 4.0 Chloride 130 H Carbon Dioxide 20 L BUN 81 H Creatinine 2.6 H Glucose 88 Calcium 9.0 Cardiac Enzymes 12/10/23 12/11/23 12/11/23 Range/Units 22:08 00:24 02:19 Creatine Kinase 600 H* 818 H* (39-308) U/L Troponin T Baselin e 216 H* (0-15) ng/L Troponin T 120 Min circle 212.8 H (0-15) ng/L Delta Troponin T -3.2 L (0-10) ABS# Troponin T Hi Sens 6Hr (0-15) ng/L Troponin T Hi Sens 6Hr Delta (0-12) ng/L 12/11/23 Range/Units 03:55 Creatine Kinase (39-308) U/L Troponin T Baselin e (0-15) ng/L Troponin T 120 Min circle (0-15) ng/L Delta Troponin T (0-10) ABS# Troponin T Hi Sens 6Hr 223.8 H (0-15) ng/L Troponin T Hi Sens 6Hr Delta 7.8 (0-12) ng/L Liver Function 12/10/23 12/12/23 Range/Units 22:08 03:03 Total Bilirubin 0.4 0.2 (0.15-1.2) mg/dL AST 35 56 H (0-40) U/L ALT 21 23 (0-41) U/L Alkaline Phosphata se 53 58 (40-130) U/L Albumin 3.0 L 2.5 L (3.5-5.2) g/dL Urine 12/10/23 Range/Units 22:08 Urine Color Yellow (Yellow) Urine Appearance Slightly cloudy (CLEAR) Urine pH 5 (5-7) Ur Specific [place] y 1.020 (1.005-1.030) Urine Protein Neg (Negative) Urine Glucose (UA) Norm (Normal) Urine Ketones 1+ H (Negative) Urine Nitrate Negative (Negative) Urine Bilirubin Neg (Negative) Ur Leukocyte [place] a[place] Negative (Negative) Urine RBC 25-40 H (0-2) /hpf Urine WBC 5-10 H (0-5) /hpf Blood Bank 12/11/23 13:10 Blood Type A Positive Rho(D) Type Rh positive Antibody Screen Negative Coags 12/10/23 12/11/23 22:08 02:19 ESR 25 H PT 15.30 H 15.60 H INR 1.17 1.20 APTT 32.4 C-Reactive Protein 86.0 H Vitals: Temperature 98.8 F 12/12/23 02:00 Temperature Source Temporal Artery S can 12/12/23 02:00 Pulse Rate 74 12/12/23 09:45 Pulse Rhythm Regular 12/11/23 15:24 Pulse Strength 3+ Normal 12/12/23 08:00 Respiratory Rate 17 12/12/23 09:45 Respiratory Effort Spontaneous, Non- Labored 12/12/23 08:00 Respiratory Depth Normal 12/12/23 08:00 Respiratory Patter n Normal 12/11/23 15:24 Blood Pressure 103/60 12/12/23 09:45 Blood Pressure Jordyn n 74 12/12/23 09:45 Blood Pressure Pos ition Semi Fowlers 12/11/23 15:07 Pulse Oximetry 97 12/12/23 09:45 Oxygen Delivery Me thod Room Air 12/11/23 23:00 Sepsis Recent Feve r Within 48 Hours No 12/11/23 00:30 Sepsis Action Take n by Nursing Previously Not ified 12/11/23 00:15 Cardiac Studies: Echocardiogram 12/11/23
--- NOTE | 2023-12-12 15:19 | P.HPUD_ITS ---
Surgery/Procedure H&P Update DATE OF PROCEDURE: December 12, 2023 DATE H&P PERFORMED: 12/11/23 H&P UPDATE INFORMATION: I have reviewed H&P completed within last 30 days, I have examined patient prior to procedure, No changes to prior documentation and [place] [facility] [place] PREOP DIAGNOSIS: Concern for GI bleed PLANNED PROCEDURE: Operation Date: 12/12/23 15:00 Proposed Procedures p EGD with possible bleeding control(Not Applicable) - Corwin Muhammad MD
--- NOTE | 2023-12-12 15:45 | ANE.PACU2 ---
Inpatient post-anesthesia follow up: Airway intact: Yes Vital signs: Temperature 98.1 F Pulse Rate 75 Respiratory Rate 21 Blood Pressure 115/73 Pulse Oximetry 99 Oxygen Delivery Me thod Room Air Oxygen Flow Rate Fraction of Inspir ed Oxygen Hydration adequate: Yes Nausea and vomiting: No Pain level: 1 Mental status: Baseline
--- NOTE | 2023-12-12 15:46 | P.MISC_ITS ---
Miscellaneous Note Purpose of Documentation: Update on patient care Note: Upper endoscopy was done. Findings are small hiatal hernia and significant duodenitis that likely was the source of bleeding. No active bleeding noted during the endoscopy, biopsies were taken. Can continue high-dose PPI and Carafate, can follow-up with me as outpatient in 2 weeks and will plan for repeat endoscopy 4 to 6 weeks depending on pathology results. -Continue high-dose PPI -Okay to advance diet as tolerated -Follow-up as outpatient with general pineda michelle
[2023-12-12 16:10] LABS: HIV RNA (CPY/ML) NOT DETECTED (NOT DETECTED); HIV RNA LOG NOT DETECTED copies/mL (NOT DETECTED)
[2023-12-12 17:07] LABS: Sodium 158 mmol/L (136-145)
[2023-12-12 20:59] LABS: Sodium 158 mmol/L (136-145)
[2023-12-13] VITALS (48 sets, daily range): BP systolic 78–119; BP diastolic 47–81; PULSE 58–101; RESP 11–31; TEMP 36.6–36.8; O2SAT 93–100; BMI 17.2
[2023-12-13 00:25] LABS: Absolute CD4 + Cells 47 cells/uL (490-1740); Absolute Lymphocytes 211 cells/uL (850-3900); Absoulte CD8+Cells 88 cells/uL (180-1170); CD4/CD8 Ratio 0.53 (0.86-5.00); Percent CD8 42 % (12-42); Percentage CD4 22 % (30-61)
[2023-12-13 01:40] LABS: Sodium 155 mmol/L (136-145)
[2023-12-13] MEDS: sucralfate 1 gm/10 mL Oral Liq UDC PO ×4 (02:36→20:06)
[2023-12-13] MEDS: pantoprazole 40 mg SDV IVP ×2 (02:36→15:18)
[2023-12-13 04:26] LABS: Basophils % 0.3 %; Eosinophils # 0.1 10^3/uL (0.0-0.8); Eosinophils % 0.6 %; Hematocrit 29.6 % (37-53); Lymphocytes # 1.4 10^3/uL (0.8-4.8); Lymphocytes % 14.8 %; Mean Corpuscular HGB Conc 34.1 g/dL (30-55); Mean Corpuscular Hemoglobin 33.6 pg (27-33); Mean Corpuscular Volume 98.3 fl (82-101); Mean Platelet Volume 9.7 fL (7.4-10.4); Monocytes # 0.7 10^3/uL (0.2-0.9); Monocytes % 7.1 %; Neutrophils # 7.21 10^3/uL (1.8-7.7); Neutrophils % 76.8 %; Nucleated Red Blood Cells % 0.2 %; Platelet Count 250 10^3/cmm (157-399); Red Blood Count 3.01 10^6/uL (3.85-5.65); Red Cell Distribution Width 17.1 % (12.1-15.1)
[2023-12-13 05:01] LABS: Anion Gap 13.1 (5-19); Blood Urea Nitrogen 37 mg/dL (8-23); Calcium 8.5 mg/dL (8.5-10.5); Carbon Dioxide 21 mmol/L (22-29); Chloride 124 mmol/L (98-107); Glucose 77 mg/dL (65-115); Osmolality Calculated 327 mOsm/kg (285-295); Potassium 3.1 mmol/L (3.5-5.1); Sodium 155 mmol/L (136-145)
[2023-12-13] MEDS: dextrose 5% 1,000 ML 100 ML IV (05:42)
[2023-12-13] MEDS: piperacillin-tazobactam 3.375 GM in sodium chloride 0.9% (plus) 50 ML IV ×2 (08:36→20:06)
--- NOTE | 2023-12-13 10:54 | P.PN_ITS ---
Subjective 2 Subjective: Appreciate speech therapy recommendations Patient not able to swallow properly At risk of aspiration No fever Doing well on room air Currently on Levophed 1 mics Requested PT and OT today Will discuss goals of care with the daughter Creatinine and sodium improving continue D5 for now Vitals/I&O/Wt Last Vital Signs Temp 97.9 F 12/13/23 04:00 Pulse 101 H 12/13/23 09:00 Resp 14 12/13/23 09:00 BP 118/75 12/13/23 09:00 Pulse Ox 99 12/13/23 09:00 O2 Del Method Room Air 12/13/23 06:00 12/12/23 12/13/23 12/13/23 22:59 06:59 14:59 Intake Total 1145.375 / 2219.250 1055.5 / 3274.750 120 / 120 Output Total 800 / 800 900 / 1700 Balance 345.375 / 1419.250 155.5 / 1574.750 120 / 120 Weight last 48 hrs Weight 44 kg Weight 42 kg Physical Exam 2 Narrative: Short attention span Extremely deconditioned Fatigue Does not have very strong cough or gag reflex Able to move his extremities Dehydrated Abdomen soft Currently room air Currently on Levophed 1 mics Sinus rhythm Extreme lethargic and fatigued Urinary Catheter Management: Santoyo Latex: Cath Placed During This Visit: yes Reason for Continuing Indwelling Catheter: Accurate Measurement of Urinary Output in Critically Ill Patients Urinary Catheter Date of Insertion: 12/10/23 Urinary Catheter Time of Insertion: 21:50 Data 12/13/23 03:44 12/13/23 03:44 Micro: Microbiology 12/10/23 22:08 Urine Culture - Final Urine,Clean Catch A&P Assessment and plan (1) Elevated troponin: (2) Acute GI bleeding: (3) GI bleed: (4) Acute renal failure: Qualifiers: Acute renal failure type: unspecified Qualified Code(s): N17.9 - Acute kidney failure, unspecified (5) Acute dehydration: (6) Hypernatremia: (7) Metabolic acidosis: (8) UTI (urinary tract infection): (9) HIV disease: (10) Rhabdomyolysis: Qualifiers: Encounter type: initial encounter (11) Encephalopathy: Plan Acute macrocytic anemia GI bleed anemia Melanotic stool EGD showed duodenitis hiatal hernia Hemoglobin stable Weaning of Levophed Severe dehydration with hypernatremia Weaning off Levophed, continue D5 until sodium below 145 With better p.o. intake anticipate improvement further in sodium Guarded prognosis Metabolic encephalopathy related to dehydration: Improving ZACKERY: Creatinine improving with IV fluid hydration Will discontinue Santoyo catheter Diastolic CHF, troponin elevation likely type II [place] ACS protocol not initiated secondary to anemia HIV positive continue HIV medications as creatinine has improved Patient is deconditioned with sarcopenia severe protein calorie malnourishment Can resume with PT and OT today Hypovolemic shock we were able to wean off Levophed currently is on 2 mics improving with IV fluids [facility] placement, transfer out of ICU today once off Levophed Hypokalemia: To be replenished Attestations 2 Medical Necessity Statement*: continue ICU management Diagnoses Elevated troponin R79.89 Acute GI bleeding K92.2 GI bleed K92.2 Acute renal failure N17.9 Acute renal failure type: unspecified Acute dehydration E86.0 Hypernatremia E87.0 Metabolic acidosis E87.20 UTI (urinary tract infection) N39.0 HIV disease B20 Rhabdomyolysis M62.82 Encounter type: initial encounter Encephalopathy G93.40
[2023-12-13] MEDS: albumin 12.5 GM/250 ML VIAL IV (13:04)
[2023-12-13] MEDS: dextrose 5%-sod chloride 0.45% 1,000 ML 75 ML IV (15:19)
[2023-12-14] VITALS (37 sets, daily range): BP systolic 90–140; BP diastolic 56–81; PULSE 60–89; RESP 13–33; TEMP 36.3–36.6; O2SAT 84–100; BMI 17.2
[2023-12-14] MEDS: sucralfate 1 gm/10 mL Oral Liq UDC PO ×3 (02:39→15:15)
[2023-12-14] MEDS: pantoprazole 40 mg SDV IVP ×2 (02:39→14:47)
[2023-12-14 04:08] LABS: Basophils % 0.3 %; Eosinophils # 0.2 10^3/uL (0.0-0.8); Eosinophils % 2.1 %; Hematocrit 27.3 % (37-53); Lymphocytes # 1.5 10^3/uL (0.8-4.8); Lymphocytes % 20.5 %; Mean Corpuscular HGB Conc 32.2 g/dL (30-55); Mean Corpuscular Volume 102.2 fl (82-101); Monocytes # 0.5 10^3/uL (0.2-0.9); Monocytes % 6.5 %; Neutrophils % 70.2 %; Nucleated Red Blood Cells % 0.3 %; Platelet Count 201 10^3/cmm (157-399); Red Blood Count 2.67 10^6/uL (3.85-5.65); Red Cell Distribution Width 17.3 % (12.1-15.1); White Blood Count 7.26 10^3/uL (3.29-11.43)
[2023-12-14] MEDS: dextrose 5%-sod chloride 0.45% 1,000 ML 75 ML IV ×2 (04:37→20:38)
[2023-12-14 04:42] LABS: Anion Gap 12.4 (5-19); Blood Urea Nitrogen 21 mg/dL (8-23); Calcium 7.9 mg/dL (8.5-10.5); Carbon Dioxide 21 mmol/L (22-29); Chloride 120 mmol/L (98-107); Creatine Phosphokinase 81 U/L (39-308); Creatinine Clr Calc Pharmacy 32.4359; Glucose 86 mg/dL (65-115); Osmolality Calculated 312 mOsm/kg (285-295); Potassium 3.4 mmol/L (3.5-5.1); Sodium 150 mmol/L (136-145)
--- NOTE | 2023-12-14 07:11 | PC.NURSE ---
3370 Bedside report did and worksheet done but computer closed out before I got to sign it, and Guerda no longer available.
--- NOTE | 2023-12-14 09:15 | FL_ITS ---
WS: [id number] Modified barium swallow, 12/14/2023 Clinical Data: Other dysphagia Comparison: None. Fluoroscopy time: 1min [phone] # of spot films: 1 Findings: The patient experienced difficulty in swallowing and initiating swallowing. There was premature spill age to the vallecula and piriform sinuses with all consistencies. There is increased residual in the piriform sinuses vallecula and the hypopharynx. There was decreased pharyngeal peristalsis. Aspiratio n and penetration occurred with different consistencies. FL/FL barium swallow modifd [id number] Impression: 1. Poor oral propulsion with premature spillage. 2. Significant residual in the hypopharynx which did not clear on multiple swal lows. 3. Penetration and then minimal aspiration with all consistencies.
--- NOTE | 2023-12-14 09:17 | PM.PN ---
Subjective Subjective: So we are able to Levophed has been turned off he is afebrile Sodium improving Santoyo cath removed as well Transfer out of ICU to [facility] Likely will go to senior living by next week Vitals/I&O/Wt Last Vital Signs Temp 97.9 F 12/14/23 04:00 Pulse 75 12/14/23 07:44 Resp 21 H 12/14/23 07:44 BP 104/64 12/14/23 07:44 Pulse Ox 97 12/14/23 07:30 O2 Del Method Room Air 12/14/23 06:00 12/13/23 12/14/23 12/14/23 22:59 06:59 14:59 Intake Total 1480 / 8233.222 4506.5 / 2680.875 Output Total 850 / 850 Balance 630 / 894.712 3286.5 / 1820.875 Weight last 48 hrs Weight 44 kg Weight 44 kg Physical Exam Narrative: Signs of dehydration present but improving Off Levophed Hemodynamically stable currently on room air Santoyo catheter discontinued Abdomen soft Patient able to eat his breakfast Nonfocal neuroexam Fatigue and lethargic with sarcopenia protein calorie malnourishment S1, S2 He is on room air Urinary Catheter Management: Santoyo Latex: Cath Placed During This Visit: yes Reason for Continuing Indwelling Catheter: Accurate Measurement of Urinary Output in Critically Ill Patients Urinary Catheter Date of Insertion: 12/10/23 Urinary Catheter Time of Insertion: 21:50 Data 12/14/23 03:46 12/14/23 03:46 Micro: Microbiology 12/10/23 22:08 Urine Culture - Final Urine,Clean Catch A&P Assessment and plan (1) Elevated troponin: (2) Acute GI bleeding: (3) GI bleed: (4) Acute renal failure: Qualifiers: Acute renal failure type: unspecified Qualified Code(s): N17.9 - Acute kidney failure, unspecified (5) Acute dehydration: (6) Hypernatremia: (7) Metabolic acidosis: (8) UTI (urinary tract infection): (9) HIV disease: (10) Rhabdomyolysis: Qualifiers: Encounter type: initial encounter (11) Encephalopathy: (12) Dysphagia: Plan Acute macrocytic anemia Status post 1 unit PRBC hemoglobin stable, EGD showed hiatal hernia and duodenitis Severe dehydration with hypernatremia Continue D5 half-normal saline Metabolic encephalopathy related to dehydration: Resolved ZACKERY: Significant improvement of creatinine with IV fluid hydration Santoyo catheter discontinued 12/12 Diastolic CHF, troponin elevation likely type II [place] ACS protocol not initiated secondary to anemia, echo unremarkable HIV positive, HIV medication resumed 12/12 Patient is deconditioned with sarcopenia severe protein calorie malnourishment Will need senior living placement for rehab Hypovolemic shock we were able to wean off Levophed, he received 1 bag of albumin on 12/12, second bag will be given 12/13, we were able to wean him off Levophed completely Hypokalemia: Potassium is 3.4, Replenished today Will need senior living placement likely by next week Transfer out of ICU, continue PT/OT Currently on dysphagia diet with thick liquid, GI soft, concern for aspiration with dysphagia will request modified barium swallow study Attestations Medical Necessity Statement*: Out of ICU today Diagnoses Elevated troponin R79.89 Acute GI bleeding K92.2 GI bleed K92.2 Acute renal failure N17.9 Acute renal failure type: unspecified Acute dehydration E86.0 Hypernatremia E87.0 Metabolic acidosis E87.20 UTI (urinary tract infection) N39.0 HIV disease B20 Rhabdomyolysis M62.82 Encounter type: initial encounter Encephalopathy G93.40 Dysphagia R13.10
[2023-12-14] MEDS: piperacillin-tazobactam 3.375 GM in sodium chloride 0.9% (plus) 50 ML IV ×2 (09:47→20:40)
--- NOTE | 2023-12-14 10:00 | PC.NURSE ---
6386 Patient unable to void, lower quadrant over bladder area does feel firm. Did bladder scan, it shows 677mls. Notified Dr. Grossman.
--- NOTE | 2023-12-14 10:24 | PC.NURSE ---
1015 Order from doctor to do a straight cath. Instilled a straight cath, clear pale yellow urine came out very slowly and none at times unless the patient bared down, coughed or groaned, then at times it came out at a steady stream.. After abou 400ml ml all urine stopped coming out even with baring down. 400ml urine out.
--- NOTE | 2023-12-14 12:08 | PC.NURSE ---
1100 Called Kathie, daughter, informing of ordered Barium swallow test scheduled at 1pm toDAY, AND has orders to transfer to floor, but no bed available now. Notified patient unable to void, did bladder scan and straight cath in and out receiving 400ml out.
--- NOTE | 2023-12-14 12:38 | PC.SOCIAL ---
IMM Updated pg 2 of IMM updated and reviewed w/ patient. Copy provided and copy dated, initialed and placed in chart.
--- NOTE | 2023-12-14 13:23 | PC.NURSE ---
1315 Took patient per wheelchair to radiology for modified barium swallow. Assisted getting patient into rad chair and left him in their care.
[2023-12-14] MEDS: ABACAVIR DOLUTEGRAVIR LAMIVUD 1 EACH PO (15:09)
--- NOTE | 2023-12-14 16:50 | CTR_ITS ---
PROCEDURE INFORMATION: Exam: CT Lumbar Spine Without Contrast Exam date and time: 12/14/2023 5:10 PM Age: 73 years old Clinical indication: Other: Urinary retention; Additional info: Urine retention TECHNIQUE: Imaging protocol: Computed tomography of the lumbar spine without contrast. Radiation optimization: All CT scans at this facility use at least one of these dose optimization techniques: automated exposure control; mA and/or kV adjustment per patient size (includes targeted exams where dose is matched to clinical indication); or iterative reconstruction. COMPARISON: [place] [id number] 12/10/2023 11:09 PM RADIATION DOSE METRICS: Total DLP (mGy-cm): 321.35 FINDINGS: Bones/joints: Bones are diffusely osteopenic. Spinal alignment is normal. Severe biconcave compression fracture at L1 demonstrates lucent fracture lines and minimal (1-2 mm) posterior cortical retropulsion. There is a moderate T12 superior endplate compression fracture without cortical retropulsion or visible fracture lines. There is mild lower lumbar facet spondylosis. There are mild generalized disc bulges throughout the lumbar spine. The visible portion of the pelvis and sacrum is intact. Visible portions of the ribs are intact. [id number] multilevel degenerative spinal stenosis, greatest at L4-L5. Kidneys and ureters: Bilateral hydronephrosis and hydroureter, partially imaged. Lymph nodes: There are enlarged bilateral common iliac lymph nodes. Soft tissues: Posterior paraspinal soft tissues are unremarkable. CT/CT lumbar spine wo con* [id number] IMPRESSION: 1. Severe L1 compression fracture, possibly acute, stable since 12/10/2023. 2. Probably chronic T12 compression fracture. 3. Mild to moderate degenerative spinal stenosis, greatest at L4-L5. Mild lumbar disc and facet degeneration. 4. Bilateral hydronephrosis. 5. Bilateral common iliac lymphadenopathy.
--- NOTE | 2023-12-14 17:09 | PC.NURSE ---
1645 Called report to Leona on 2nd floor/[facility]. Transported patient via wheelchair with all belongings with daughter, Kathie, at bedside. No c/o's. Vss
[2023-12-14] MEDS: albumin 12.5 GM/250 ML VIAL IV (18:26)
[2023-12-14] MEDS: lidocaine 1% 5 ML in potassium chloride premix 100 ML 26.25 ML IV (20:39)
[2023-12-15] VITALS (9 sets, daily range): BP systolic 116–147; BP diastolic 72–79; PULSE 53–77; RESP 16–19; TEMP 36.4–36.6; O2SAT 98–100
[2023-12-15] MEDS: pantoprazole 40 mg SDV IVP ×2 (03:14→15:20)
[2023-12-15 05:26] LABS: Basophils % 0.3 %; Eosinophils # 0.1 10^3/uL (0.0-0.8); Eosinophils % 1.2 %; Hematocrit 27.1 % (37-53); Lymphocytes # 1.1 10^3/uL (0.8-4.8); Lymphocytes % 18.9 %; Mean Corpuscular HGB Conc 31.4 g/dL (30-55); Mean Corpuscular Hemoglobin 32.7 pg (27-33); Mean Corpuscular Volume 104.2 fl (82-101); Mean Platelet Volume 10.2 fL (7.4-10.4); Monocytes # 0.5 10^3/uL (0.2-0.9); Monocytes % 8.2 %; Neutrophils # 4.09 10^3/uL (1.8-7.7); Neutrophils % 71.1 %; Nucleated Red Blood Cells % 0 %; Platelet Count 180 10^3/cmm (157-399); Red Cell Distribution Width 17.4 % (12.1-15.1); White Blood Count 5.76 10^3/uL (3.29-11.43)
[2023-12-15 05:50] LABS: Anion Gap 12.9 (5-19); Blood Urea Nitrogen 16 mg/dL (8-23); Calcium 7.9 mg/dL (8.5-10.5); Carbon Dioxide 18 mmol/L (22-29); Chloride 120 mmol/L (98-107); Creatinine Clr Calc Pharmacy 51.7048; Glucose 96 mg/dL (65-115); Osmolality Calculated 307 mOsm/kg (285-295); Sodium 148 mmol/L (136-145)
[2023-12-15 05:52] LABS: Potassium 2.9 mmol/L (3.5-5.1)
[2023-12-15] MEDS: lidocaine 1% 5 ML in potassium chloride premix 100 ML 26.25 ML IV ×2 (06:37→11:07)
[2023-12-15 08:11] LABS: Magnesium 1.4 mg/dL (1.7-2.3)
[2023-12-15] MEDS: dextrose 5%-sod chloride 0.45% 1,000 ML 75 ML IV ×2 (08:50→21:07)
[2023-12-15] MEDS: piperacillin-tazobactam 3.375 GM in sodium chloride 0.9% (plus) 50 ML IV ×3 (08:53→17:12)
--- NOTE | 2023-12-15 08:57 | PM.PN ---
Subjective Subjective: Sodium improved 248 Potassium is low, will give another 40 mill equivalent K rider to mid 80 mL given to potassium supplementation today Will also give mag 2 g General Surgery planning for feeding tube placement by tomorrow Patient is asking to have something to taste because he is n.p.o., I have asked nurse to bring popsicle Decision making capacity is questionable Patient was retaining urine again, Santoyo catheter placed Vitals/I&O/Wt Last Vital Signs Temp 97.7 F 12/15/23 07:37 Pulse 72 12/15/23 07:37 Resp 18 12/15/23 07:37 BP 133/76 12/15/23 07:37 Pulse Ox 98 12/15/23 07:37 O2 Del Method Room Air 12/15/23 07:37 12/14/23 12/15/23 12/15/23 22:59 06:59 14:59 Intake Total 1250 / 1300 155 / 1455 915 / 915 Output Total 1 / 811 600 / 1411 Balance 1249 / 489 -445 / 44 915 / 915 Weight last 48 hrs Weight 49.532 kg Weight 44 kg Physical Exam Narrative: Signs of dehydration present, improving Sarcopenia Protein calorie malnourishment Hard of hearing S1, S2 Hemodynamically stable Abdomen soft GCS 15 Urinary Catheter Management: Santoyo Latex: Cath Placed During This Visit: yes Reason for Continuing Indwelling Catheter: Other Urinary Catheter Date of Insertion: 12/14/23 Urinary Catheter Time of Insertion: 18:52 Data 12/15/23 04:56 12/15/23 04:56 A&P Assessment and plan (1) Elevated troponin: (2) Dysphagia: (3) GI bleed: (4) Acute GI bleeding: (5) Acute renal failure: Qualifiers: Acute renal failure type: unspecified Qualified Code(s): N17.9 - Acute kidney failure, unspecified (6) Acute dehydration: (7) Hypernatremia: (8) UTI (urinary tract infection): (9) Uremia: (10) HIV disease: (11) Encephalopathy: (12) Compression fracture of L1 lumbar vertebra: (13) Urinary retention: Plan 73-year-old male presenting from home with weakness fatigue and confusion. He was diagnosed with hypernatremia, UTI and metabolic encephalopathy. Patient has history of HIV. In the hospital patient experienced melanotic stools went for EGD which showed duodenitis, received 1 unit PRBC, hemoglobin has been stable, I requested modified barium swallow study which is showing severe aspiration to all of the food consistencies, he was made n.p.o., patient and family decided to proceed with feeding tube placement, general surgery is aware Patient carries a guarded prognosis, he wants chest compressions and defibrillation but no intubation, I have told the patient and family that it might not be very helpful but they want to continue with limited resuscitative goals of care for now Patient is also retaining urine I requested lumbar CT scan which is showing compression fracture L1, T12 compression fracture is chronic, degenerative joint disease bilateral hydronephrosis secondary to bladder out obstruction, Santoyo catheter placed, creatinine improving, afebrile Non-STEMI: Significant elevation of troponin however echo did not show any wall motion abnormality, patient tolerated first EGD without any complications Hypovolemic hypernatremia Patient is on D5 half-normal saline, sodium improving, it was 161 few days ago Significant dysphagia related to deconditioning muscle wasting Modified barium swallow study showed severe penetration and aspiration to all of the food consistencies, speech therapist recommended n.p.o. Patient and family agreed for PEG tube placement General surgery is aware I will also podiatry consult PEG tube to be used 24 hours after insertion with trickle feed which should be optimized slowly Duodenitis, GI bleed: Status post 1 unit PRBC Hemoglobin has been stable Continue sucralfate and Protonix Duodenal biopsy report pending Urinary retention Santoyo catheter placed Acute L1 fracture, chronic T12 fracture: Cauda equina symptoms? I will put patient on tamsulosin and Decadron He will not be considered a very good candidate for any kind of surgical intervention considering his deconditioning and current health status Bladder outlet obstruction with bilateral hydronephrosis, Santoyo catheter placed Creatinine improving, afebrile Hypokalemia and hypomagnesemia: Replenished Disposition: [facility] placement Prognosis: Guarded Diet: N.p.o. Dietary consult to start trickle feed, he may benefit from bolus feeding at the time of discharge HIV p.o. meds on hold because patient is at high risk of aspiration Multiple times meetings conducted Limited resuscitation only wants CPR and defibrillation, no intubation in case of respiratory or cardiac arrest Attestations Medical Necessity Statement*: Continue medical management Diagnoses Elevated troponin R79.89 Dysphagia R13.10 GI bleed K92.2 Acute GI bleeding K92.2 Acute renal failure N17.9 Acute renal failure type: unspecified Acute dehydration E86.0 Hypernatremia E87.0 UTI (urinary tract infection) N39.0 Uremia N19 HIV disease B20 Encephalopathy G93.40 Compression fracture of L1 lumbar vertebra S32.010A Urinary retention R33.9
[2023-12-15] MEDS: magnesium sulfate premix 2 GM/50 ML PIGGYBACK IV (09:46)
[2023-12-15] MEDS: dexamethasone 4 mg/mL INJ IVP ×3 (09:50→21:04)
[2023-12-15 09:56] LABS: Magnesium 1.5 mg/dL (1.7-2.3)
--- NOTE | 2023-12-15 14:36 | P.PN_ITS ---
Subjective 2 Subjective: I have been asked to reevaluate the patient for possible PEG tube placement as he has had difficulty swallowing. Patient states that he has difficulty swallowing and after discussion with the family wants to proceed with PEG tube placement for nutritional support. Vitals/I&O/Wt Last Vital Signs Temp 97.9 F 12/15/23 11:26 Pulse 57 L 12/15/23 11:26 Resp 16 12/15/23 11:26 BP 126/76 12/15/23 11:26 Pulse Ox 98 12/15/23 11:26 O2 Del Method Nasal Cannula 12/15/23 11:26 12/14/23 12/15/23 12/15/23 22:59 06:59 14:59 Intake Total 1250 / 1300 155 / 1455 1079.583 / 1079.583 Output Total 81 600 / 1411 Balance 1249 / 489 -445 / 44 1079.583 / 1079.583 Weight last 48 hrs Weight 109 lb 3.2 oz Weight 97 lb 0.054 oz Physical Exam 2 GI: OTHER: Abdomen is soft nontender nondistended. Urinary Catheter Management: Santoyo Latex: Cath Placed During This Visit: yes Reason for Continuing Indwelling Catheter: Other Urinary Catheter Date of Insertion: 12/14/23 Urinary Catheter Time of Insertion: 18:52 Data 12/15/23 04:56 12/15/23 04:56 A&P Assessment and plan (1) Dysphagia: Plan After complete history physical examination and review of all available clinical data the following is my assessment. I agree with placement of PEG tube, I have extensive discussion with the patient and family members, I have explained to the patient and family members that he is high risk for complications from the PEG tube due to his immunocompromise state. I have discussed all recent benefits of the procedure including the risks of peritonitis dislodgment of the PEG tube resulting in intraperitoneal leakage of intra-abdominal contents, migration, buried bumper syndrome, necrotizing fasciitis, leakage around the stoma, need for additional procedures, sepsis and . Patient's shows understanding as well as family members consent has been obtained from the daughter of the patient. We will plan to proceed with PEG tube placement tomorrow in the GI lab Attestations 2 Medical Necessity Statement*: Per medical team Coding Level of Care Code Acute Code for Chg Fwd Diagnoses Dysphagia R13.10
[2023-12-16] VITALS (22 sets, daily range): BP systolic 113–147; BP diastolic 66–92; PULSE 49–67; RESP 16–18; TEMP 36.4–36.8; O2SAT 96–100
[2023-12-16] MEDS: piperacillin-tazobactam 3.375 GM in sodium chloride 0.9% (plus) 50 ML IV ×3 (02:17→17:41)
[2023-12-16] MEDS: pantoprazole 40 mg SDV IVP ×2 (02:17→14:46)
[2023-12-16] MEDS: dexamethasone 4 mg/mL INJ IVP ×4 (02:18→21:42)
[2023-12-16 03:28] LABS: Lymphocytes # 0.5 10^3/uL (0.8-4.8); Lymphocytes % 9.9 %; Mean Corpuscular HGB Conc 32.5 g/dL (30-55); Mean Corpuscular Hemoglobin 32.9 pg (27-33); Mean Corpuscular Volume 101.1 fl (82-101); Mean Platelet Volume 10.7 fL (7.4-10.4); Monocytes # 0.1 10^3/uL (0.2-0.9); Monocytes % 2.4 %; Neutrophils # 4.65 10^3/uL (1.8-7.7); Neutrophils % 87.3 %; Nucleated Red Blood Cells % 0 %; Platelet Count 191 10^3/cmm (157-399); Red Blood Count 2.77 10^6/uL (3.85-5.65); Red Cell Distribution Width 17.5 % (12.1-15.1); White Blood Count 5.33 10^3/uL (3.29-11.43)
[2023-12-16 03:46] LABS: Blood Urea Nitrogen 14 mg/dL (8-23); Calcium 8.2 mg/dL (8.5-10.5); Carbon Dioxide 17 mmol/L (22-29); Chloride 119 mmol/L (98-107); Creatinine Clr Calc Pharmacy 51.7048; Glucose 140 mg/dL (65-115); Osmolality Calculated 303 mOsm/kg (285-295); Phosphorus 1.7 mg/dL (2.5-4.5); Sodium 145 mmol/L (136-145)
[2023-12-16 03:51] LABS: Anion Gap 12.7 (5-19); Potassium 3.7 mmol/L (3.5-5.1)
--- NOTE | 2023-12-16 06:47 | W.PM.OPSFHP ---
Same Day Surgery H&P Indication for Procedure/HPI DATE OF PROCEDURE: December 16, 2023 CHIEF COMPLAINT/INDICATIONFOR SURGICAL PROCEDURE: failure to thrive PREOP DIAGNOSIS: failure to thrive PLANNED PROCEDURE: Operation Date: 12/12/23 15:00 Proposed Procedures p EGD with possible bleeding control(Not Applicable) - Corwin Muhammad MD Operation Date: 12/16/23 08:00 Proposed Procedures p PEG Tube Insertion(Not Applicable) - Corwin Muhammad MD Medications/Allergies* Home Medications Medication Instructions Recorded Confirmed Type abacavir 600 mg-dolutegravir 50 1 tab PO DAILY 12/11/23 12/11/23 History mg-lamivudine 300 mg tablet (Triumeq) ezetimibe 10 mg tablet 10 mg PO DAILY 12/11/23 12/11/23 History fenofibrate nanocrystallized 145 145 mg PO DAILY 12/11/23 12/11/23 History mg tablet lisinopril 10 mg tablet 10 mg PO DAILY 12/11/23 12/11/23 History Allergies/Adverse Reactions Allergy/AdvReac Type Severity Reaction Status Date / Time Sulfa (Sulfonamide Allergy Unknown Verified 12/10/23 21:37 Antibiotics) Current Medications: Generic Name Dose Route Start Last Admin Trade Name Freq PRN Reason Stop Dose Admin Dexamethasone 4 mg 12/15/23 09:15 12/16/23 02:18 Dexamethasone 4 Mg/Ml Inj IVP 4 mg Q6H BYRON Administration Dextrose/Sodium Chloride 1,000 mls @ 75 mls/hr 12/13/23 11:15 12/15/23 21:07 Dextrose 5%-Sod Chloride 0.45% IV 75 mls/hr .[id number] BYRON Administration Piperacillin Sod/Tazobactam 50 mls @ 12.5 mls/hr 12/15/23 10:00 12/16/23 02:17 Sod 3.375 gm/ Sodium Chloride IV 12.5 mls/hr Q8H BYRON Administration Protocol Non-Formulary Medication 1 tab 12/14/23 09:00 12/15/23 08:51 [id number]-[id number] [Triumeq] PO Not Given DAILY BYRON Pantoprazole Sodium 40 mg 12/11/23 02:44 12/16/23 02:17 Pantoprazole 40 Mg Sdv IVP 40 mg Q12H BYRON Administration Sucralfate 1 gm 12/11/23 02:44 12/16/23 01:39 Sucralfate 1 Gm/10 Ml Oral Liq Udc PO Not Given Q6H BYRON Pertinent Exam Findings alert, oriented x 3 and clear to auscultation bilaterally Recommendations Surgery/Procedure today Other Plans: for PEG tube placement today Coding Level of Care Code Acute Code for Chg Fwd
[2023-12-16] MEDS: sodium chloride 0.9% 1,000 ML 30 ML IV (07:45)
--- NOTE | 2023-12-16 07:52 | P.ANESUD_ITS ---
Pre-Anesthetic Update Pre-Anesthetic Assessment: Date of Surgery/Procedure: 12/16/23 Preop Winter gnosis: failure to thrive Proposed Procedure: Operation Date: 12/12/23 15:00 Proposed Procedures p EGD with possible bleeding control(Not Applicable) - Corwin Muhammad MD Operation Date: 12/16/23 08:00 Proposed Procedures p PEG Tube Insertion(Not Applicable) - Corwin Muhammad MD Any changes to Pre-Anesthetic Assessment?: No Labs Last 48hrs: Short CBC 12/15/23 12/16/23 Range/Units 04:56 03:08 WBC 5.76 5.33 (3.29-11.43) 10^ 3/uL Hgb 8.50 L 9.10 L (11.27-16.99) g/ dL Hct 27.1 L 28.0 L (37-53) % MCV 104.2 H 101.1 H (82-101) fl Plt Count 180 191 (157-399) 10^3/c mm Neut % (Auto) 71.1 87.3 % Neut # (Auto) 4.09 4.65 (1.8-7.7) 10^3/u L BMP 12/15/23 12/16/23 04:56 03:08 Sodium 148 H 145 Potassium 2.9 L 3.7 Chloride 120 H 119 H Carbon Dioxide 18 L 17 L BUN 16 14 Creatinine 1.0 1.0 Glucose 96 140 H Calcium 7.9 L 8.2 L Vitals: Temperature 98.2 F 12/16/23 07:39 Temperature Source Temporal Artery S can 12/16/23 07:39 Pulse Rate 59 L 12/16/23 07:39 Pulse Rhythm Regular 12/14/23 08:00 Pulse Strength 3+ Normal 12/14/23 08:00 Respiratory Rate 16 12/16/23 07:39 Respiratory Effort Spontaneous, Non- Labored 12/15/23 19:37 Respiratory Depth Normal 12/15/23 19:37 Respiratory Patter n Normal 12/15/23 19:37 Blood Pressure 129/78 12/16/23 07:39 Blood Pressure Jordyn n 95 12/16/23 07:39 Blood Pressure Pos ition Semi Fowlers 12/16/23 06:00 Pulse Oximetry 100 12/16/23 07:39 Oxygen Delivery Me thod Room Air 12/16/23 07:39 Sepsis Recent Feve r Within 48 Hours No 12/11/23 00:30 Sepsis Action Take n by Nursing Previously Not ified 12/11/23 00:15 Exam: Pre-Anes Outpt Exam: alert, oriented x 3, clear to auscultation bilaterally and regular rate & rhythm Cardiac Studies: Echocardiogram 12/11/23
--- NOTE | 2023-12-16 08:23 | PM.MISC ---
Miscellaneous Note Purpose of Documentation: Update on patient care Note: PEG tube placed without complication. PEG tube can be used starting tomorrow morning. FOllow up with surgery in 2 weeks Feeding schedule and formula per nutrition recommendations
--- NOTE | 2023-12-16 08:55 | ANE.PACU2 ---
Inpatient post-anesthesia follow up: Airway intact: Yes Vital signs: Temperature 97.7 F Pulse Rate 57 Respiratory Rate 18 Blood Pressure 124/72 Pulse Oximetry 100 Oxygen Delivery Me thod Room Air Oxygen Flow Rate 4 Fraction of Inspir ed Oxygen Hydration adequate: Yes Nausea and vomiting: No Pain level: 1 Mental status: Baseline
[2023-12-16] MEDS: dextrose 5%-sod chloride 0.45% 1,000 ML 75 ML IV (10:34)
--- NOTE | 2023-12-16 13:56 | P.PN_ITS ---
Subjective 2 Subjective: The patient had a PEG tube placed this morning without complication. He had been unable to eat or drink anything due to swallowing difficulties. He had high aspiration risk. He is doing well with this. His pain is well-controlled. He does not have any nausea. Vitals/I&O/Wt Last Vital Signs Temp 97.7 F 12/16/23 11:00 Pulse 49 L 12/16/23 11:00 Resp 17 12/16/23 11:00 BP 133/78 12/16/23 11:00 Pulse Ox 98 12/16/23 11:00 O2 Del Method Room Air 12/16/23 11:00 O2 Flow Rate 4 12/16/23 08:26 12/15/23 12/16/23 12/16/23 22:59 06:59 14:59 Intake Total 1246.25 / 2325.833 2140 / 2140 Output Total 1025 / 1025 300 / 1325 0 / 0 Balance 221.25 / 1300.833 -300 / 3041.804 1629 / 2140 Weight last 48 hrs Weight 105 lb 4.8 oz Weight 109 lb 3.2 oz Physical Exam 2 Narrative: General: Alert and oriented x 3. In no acute distress. Thin. Generalized weakness. Eyes: PERRLA, EOM intact, no discharge. Mouth: No erythema or tonsilar enlargement. No masses noted. Neck: No thyromegaly. No lymphadenopathy. Heart: Regular rate and rhythm. No murmurs. Lungs: Clear to auscultation bilaterally. No wheezes, crackles or ronchi. Abdomen: Soft, mild tenderness without rebound tenderness. No hepatosplenomegaly. Extremities: No pitting edema. Urinary Catheter Management: Santoyo Latex: Cath Placed During This Visit: yes Reason for Continuing Indwelling Catheter: Acute Urinary Retention or Obstruction Urinary Catheter Date of Insertion: 12/14/23 Urinary Catheter Time of Insertion: 18:52 Data 12/16/23 03:08 12/16/23 03:08 Micro: Microbiology 12/10/23 22:32 Blood Culture - Final Blood NO GROWTH AFTER 5 DAYS 12/10/23 22:27 Blood Culture - Final Blood NO GROWTH AFTER 5 DAYS A&P Assessment and plan (1) Hypernatremia: Patient's sodium levels have improved back to normal. They were likely elevated due to severe dehydration. (2) Encephalopathy: This is showing signs of significant improvement since admission. He is able to carry on a conversation, however with significant weakness and 4-5 words at a time. Difficult to understand due to weakness of voice. (3) Compression fracture of L1 lumbar vertebra: The patient's pain is stable at this time. We will continue to follow for now. (4) Dysphagia: The patient has significant dysphagia with aspiration and inability to pass food or fluids adequately. He had a PEG tube placed and we will plan to start using this tomorrow if everything goes well. The dietitian has been consulted to assist with starting feeds. (5) Hypomagnesemia: We will replace this by IV today. (6) Hypophosphatemia: This will be replaced by IV today. Attestations 2 Medical Necessity Statement*: The patient is significantly weak and is showing signs of improvement, however continues to need inpatient therapy. His stay will cross 2 midnights. Coding Level of Care Code Acute Code for [facility] Diagnoses Hypernatremia E87.0 Encephalopathy G93.40 Compression fracture of L1 lumbar vertebra S32.010A Dysphagia R13.10 Hypomagnesemia E83.42 Hypophosphatemia E83.39
[2023-12-16] MEDS: magnesium sulfate premix 2 GM/50 ML PIGGYBACK IV (14:30)
[2023-12-16] MEDS: potassium phosphate (mMol PO4) 30 MMOL in sodium chloride 0.9% (100 ml) 100 ML 23.16 MMOL IV (15:29)
[2023-12-16] MEDS: sucralfate 1 gm/10 mL Oral Liq UDC PO (21:42)
[2023-12-17] VITALS (10 sets, daily range): BP systolic 121–131; BP diastolic 48–79; PULSE 43–71; RESP 16–21; TEMP 36.4–37; O2SAT 97–99
[2023-12-17] MEDS: dextrose 5%-sod chloride 0.45% 1,000 ML 75 ML IV ×2 (00:32→14:19)
[2023-12-17 03:14] LABS: Basophils % 0.1 %; Hematocrit 29.1 % (37-53); Lymphocytes # 0.6 10^3/uL (0.8-4.8); Lymphocytes % 6.4 %; Mean Corpuscular HGB Conc 32.3 g/dL (30-55); Mean Corpuscular Hemoglobin 32.9 pg (27-33); Mean Corpuscular Volume 101.7 fl (82-101); Mean Platelet Volume 11.2 fL (7.4-10.4); Monocytes # 0.3 10^3/uL (0.2-0.9); Monocytes % 3.4 %; Neutrophils # 7.97 10^3/uL (1.8-7.7); Neutrophils % 89.5 %; Nucleated Red Blood Cells % 0 %; Platelet Count 231 10^3/cmm (157-399); Red Blood Count 2.86 10^6/uL (3.85-5.65); Red Cell Distribution Width 17.9 % (12.1-15.1)
[2023-12-17 03:32] LABS: Alanine Aminotransferase 30 U/L (0-41); Albumin Level 3.2 g/dL (3.5-5.2); Alkaline Phosphatase 75 U/L (40-130); Anion Gap 13.8 (5-19); Aspartate Amino Transferase 51 U/L (0-40); Blood Urea Nitrogen 16 mg/dL (8-23); Calcium 8.2 mg/dL (8.5-10.5); Carbon Dioxide 20 mmol/L (22-29); Chloride 118 mmol/L (98-107); Creatinine Clr Calc Pharmacy 51.0267; Globulin 2.9 g/dL (1.3-4.6); Glucose 114 mg/dL (65-115); Osmolality Calculated 308 mOsm/kg (285-295); Phosphorus 2.6 mg/dL (2.5-4.5); Potassium 3.8 mmol/L (3.5-5.1); Sodium 148 mmol/L (136-145); Total Bilirubin 0.2 mg/dL (0.15-1.2); Total Protein 6.1 g/dL (6.6-8.7)
[2023-12-17] MEDS: piperacillin-tazobactam 3.375 GM in sodium chloride 0.9% (plus) 50 ML IV ×3 (03:44→18:18)
[2023-12-17] MEDS: dexamethasone 4 mg/mL INJ IVP ×4 (03:44→22:03)
[2023-12-17] MEDS: pantoprazole 40 mg SDV IVP ×2 (03:44→14:19)
--- NOTE | 2023-12-17 07:04 | P.PN_ITS ---
Subjective 2 Subjective: Postoperative day 1 status post PEG tube placement. Patient doing okay no significant issues. Vitals/I&O/Wt Last Vital Signs Temp 97.8 F 12/17/23 04:00 Pulse 56 L 12/17/23 04:00 Resp 20 H 12/17/23 04:00 BP 130/79 12/17/23 04:00 Pulse Ox 98 12/17/23 04:00 O2 Del Method Room Air 12/17/23 04:00 O2 Flow Rate 4 12/16/23 08:26 12/16/23 12/17/23 12/17/23 22:59 06:59 14:59 Intake Total 100 / 2240 1110 / 3350 Output Total 1025 / 1025 Balance 100 / 2240 85 / 2325 Weight last 48 hrs Weight 112 lb Weight 105 lb 4.8 oz Physical Exam 2 GI: OTHER: Abdomen soft and nontender, area around PEG tube appears healthy no evidence of infection. Urinary Catheter Management: Santoyo Latex: Cath Placed During This Visit: yes Reason for Continuing Indwelling Catheter: Other Urinary Catheter Date of Insertion: 12/14/23 Urinary Catheter Time of Insertion: 18:52 Data 12/17/23 02:38 12/17/23 02:38 A&P Assessment and plan (1) Dysphagia: (2) GI bleed: Plan Patient doing well after PEG tube placement. PEG tube is cleared to be used today. Nutrition recommendation should follow-up regarding feeding schedule as well as type of formula. Patient can follow-up in 2 weeks in my clinic to ensure adequate healing. Attestations 2 Medical Necessity Statement*: Per medical team Coding Level of Care Code Acute Code for [facility] Diagnoses Dysphagia R13.10 GI bleed K92.2
[2023-12-17] MEDS: sucralfate 1 gm/10 mL Oral Liq UDC PO ×3 (09:16→22:03)
[2023-12-17] MEDS: ABACAVIR DOLUTEGRAVIR LAMIVUD 1 EACH PO (09:18)
--- NOTE | 2023-12-17 10:19 | PC.SOCIAL ---
IMM Update pg 2 of IMM updated and reviewed w/ patient. Copy provided and copy dated, initialed and placed in chart.
--- NOTE | 2023-12-17 13:14 | PC.NUTR ---
PEG tube feeding consult received. For continuous feeds, recommend Jevity 1.5 beginning at 20mls/hr increasing 20 mls Q8H to goal rate of 40 mls/hr with FWF 120mls Q4H or per MD discretion. For bolus feeds, recommend Jevity 1.5 with goal rate of 4 cartons (237mls each)/day with suggested regimen: 8am/ noon/ 4pm/ 8pm: 1 carton Jevity 1.5 (237mls) with 60mls FWF before and after bolus feed. *If Pt losing weight or hungry, add 120-237mls to last bolus feeding.
--- NOTE | 2023-12-17 13:28 | PC.NURSE ---
1315 Started Jevity 1.5 at 20ml/hr for 8hrs then will change to 40ml/hr per dietation.
--- NOTE | 2023-12-17 13:42 | P.PN_ITS ---
Subjective 2 Subjective: No acute overnight events noted. He is complaining of epigastric abdominal pain while coughing likely secondary to postsurgery. Medications: Reviewed: Yes Vitals/I&O/Wt Last Vital Signs Temp 97.6 F 12/17/23 11:45 Pulse 53 L 12/17/23 11:45 Resp 17 12/17/23 11:45 BP 131/74 12/17/23 11:45 Pulse Ox 99 12/17/23 11:45 O2 Del Method Room Air 12/17/23 11:45 O2 Flow Rate 4 12/16/23 08:26 12/16/23 12/17/23 12/17/23 22:59 06:59 14:59 Intake Total 100 / 2240 1110 / 3350 50 / 50 Output Total 1025 / 1025 Balance 100 / 2240 85 / 2325 50 / 50 Weight last 48 hrs Weight 50.802 kg Weight 47.763 kg Physical Exam 2 Narrative: General: Alert and oriented x 3. In no acute distress. Thin. Generalized weakness. Eyes: PERRLA, EOM intact, no discharge. Mouth: No erythema or tonsilar enlargement. No masses noted. Neck: No thyromegaly. No lymphadenopathy. Heart: Regular rate and rhythm. No murmurs. Lungs: Clear to auscultation bilaterally. No wheezes, crackles or ronchi. Abdomen: Soft, tenderness present around surgical site, dressing seen, no active discharge at this point, no hepatosplenomegaly. Extremities: No pitting edema. Urinary Catheter Management: Santoyo Latex: Cath Placed During This Visit: yes Reason for Continuing Indwelling Catheter: Other Urinary Catheter Date of Insertion: 12/14/23 Urinary Catheter Time of Insertion: 18:52 Data 12/17/23 02:38 12/17/23 02:38 A&P Assessment and plan (1) Hypernatremia: Sodium level trending up to 148 again. They were likely elevated due to severe dehydration. Patient has been n.p.o. for PEG placement since yesterday. (2) Encephalopathy: He is showing signs of significant improvement since admission. He is able to carry on a conversation, however with significant weakness and 4-5 words at a time. Difficult to understand due to weakness of voice. (3) Compression fracture of L1 lumbar vertebra: The patient's pain is stable at this time. We will continue to follow for now. Will continue IV Decadron every 6 hours. (4) Dysphagia: He is s/p PEG placement, dietitian consulted. Follow-up further recommendations. (5) Hypomagnesemia: (6) Hypophosphatemia: Plan He is on IV Zosyn probably for prophylaxis for aspiration pneumonia and post duodenitis. Will plan to discontinue antibiotics in a.m. Attestations 2 Medical Necessity Statement*: He needs continued hospitalization s/p PICC placement, nutrition consult and social work consult for discharge planning. Time Spent in Patient Care: 20 minutes Coding Level of Care Code Acute Code for [facility] Diagnoses Hypernatremia E87.0 Encephalopathy G93.40 Compression fracture of L1 lumbar vertebra S32.010A Dysphagia R13.10 Hypomagnesemia E83.42 Hypophosphatemia E83.39 Time Spent (min) 20
--- NOTE | 2023-12-17 16:29 | PC.OT ---
OT TREATMENT ATTEMPTED TWICE. PATIENT IS RECEIVING NURSING CARE AT FIRST ATTEMPT AND SLEEPING SOUNDLY AT SECOND ATTEMPT.
[2023-12-18] VITALS (9 sets, daily range): BP systolic 87–128; BP diastolic 52–76; PULSE 54–79; RESP 16–19; TEMP 36.3–36.7; O2SAT 94–99
[2023-12-18] MEDS: piperacillin-tazobactam 3.375 GM in sodium chloride 0.9% (plus) 50 ML IV (02:48)
[2023-12-18] MEDS: sucralfate 1 gm/10 mL Oral Liq UDC PO ×4 (02:49→20:04)
[2023-12-18] MEDS: dexamethasone 4 mg/mL INJ IVP ×3 (02:49→14:44)
[2023-12-18] MEDS: pantoprazole 40 mg SDV IVP ×2 (02:49→14:44)
[2023-12-18] MEDS: dextrose 5%-sod chloride 0.45% 1,000 ML 75 ML IV ×2 (03:01→17:04)
[2023-12-18 04:16] LABS: Anion Gap 14.5 (5-19); Blood Urea Nitrogen 18 mg/dL (8-23); Calcium 7.6 mg/dL (8.5-10.5); Carbon Dioxide 19 mmol/L (22-29); Chloride 115 mmol/L (98-107); Creatinine Clr Calc Pharmacy 52.1916; Glucose 137 mg/dL (65-115); Osmolality Calculated 304 mOsm/kg (285-295); Potassium 3.5 mmol/L (3.5-5.1); Sodium 145 mmol/L (136-145)
[2023-12-18] MEDS: ABACAVIR DOLUTEGRAVIR LAMIVUD 1 EACH PO (09:20)
--- NOTE | 2023-12-18 12:58 | PC.NUTR ---
PEG tube feeding consult received. For continuous feeds, recommend Jevity 1.5 beginning at 20mls/hr increasing 20 mls Q8H to goal rate of 40 mls/hr with FWF 120mls Q4H or per MD discretion. For bolus feeds, recommend Jevity 1.5 with goal rate of 4 cartons (237mls each)/day with suggested regimen: 8am/ noon/ 4pm/ 8pm: 1 carton Jevity 1.5 (240mls) with 60mls FWF before and after bolus feed. *If Pt losing weight or hungry, add 120-240mls to last feeding.
--- NOTE | 2023-12-18 18:10 | P.PN_ITS ---
Subjective 2 Subjective: No acute overnight events noted. Patient was seen comfortably walking with a walker in the hallway and has been participating well with PT. Saw him at bedside, denies any abdominal pain today and reports feeling better. Medications: Reviewed: Yes Vitals/I&O/Wt Last Vital Signs Temp 97.3 F L 12/18/23 16:30 Pulse 79 12/18/23 16:30 Resp 18 12/18/23 16:30 BP 87/63 12/18/23 16:30 Pulse Ox 94 12/18/23 16:30 O2 Del Method Room Air 12/18/23 16:30 O2 Flow Rate 4 12/16/23 08:26 12/18/23 12/18/23 12/18/23 06:59 14:59 22:59 Intake Total 1002.5 / 2792.5 1000 / 1000 Balance 1002.5 / 1016.5 1000 / 1000 Weight last 48 hrs Weight 52.299 kg Weight 50.802 kg Physical Exam 2 Narrative: He is alert awake oriented x 2, not in acute distress Chest clear to auscultation bilaterally Cardiovascular normal heart sounds Abdomen soft nontender nondistended normal bowel sounds, PEG in place Extremities no edema noted bilateral lower extremities Urinary Catheter Management: Santoyo Latex: Cath Placed During This Visit: yes Reason for Continuing Indwelling Catheter: Other Urinary Catheter Date of Insertion: 12/14/23 Urinary Catheter Time of Insertion: 18:52 Data 12/17/23 02:38 12/18/23 03:45 A&P Assessment and plan (1) Hypernatremia: Sodium at 145 today. No need for any further intervention (2) Encephalopathy: Resolved. He is able to understand and comprehend, able to answer questions appropriately (3) Compression fracture of L1 lumbar vertebra: Has been able to participate in PT eval and walking around with a walker. Will discontinue Decadron. (4) Dysphagia: He is s/p PEG placement on bolus feedings (5) Hypomagnesemia: (6) Hypophosphatemia: Attestations 2 Medical Necessity Statement*: He has been accepted to a longterm facility, awaiting for discharge in a.m. Time Spent in Patient Care: 15 minutes Coding Level of Care Code Acute Code for [facility] Diagnoses Hypernatremia E87.0 Encephalopathy G93.40 Compression fracture of L1 lumbar vertebra S32.010A Dysphagia R13.10 Hypomagnesemia E83.42 Hypophosphatemia E83.39 Time Spent (min) 15
--- NOTE | 2023-12-18 20:38 | PC.NURSE ---
2000 bolus feeding given. 1 new bottle of jevity 1.5 was opened and used. Flushed with 60mls of fresh water before administering 240mls of feed, then flushed with another 60mls fresh water after feed. Patient tolerated feed well and has no complaints at this time.
[2023-12-19] VITALS (7 sets, daily range): BP systolic 113–130; BP diastolic 56–65; PULSE 58–73; RESP 15–16; TEMP 36.4–36.6; O2SAT 94–96
[2023-12-19] MEDS: sucralfate 1 gm/10 mL Oral Liq UDC PO ×2 (03:43→09:36)
[2023-12-19] MEDS: pantoprazole 40 mg SDV IVP (03:43)
--- NOTE | 2023-12-19 04:47 | PC.NURSE ---
Addendum entered by Juanis Dubose RN 12/19/23 05:18: 575ml urine returned during straight cath. 16FR individual catheter with 5cc balloon used during straight cath, once bladder was empty balloon was filled with 10mls of saline per package instructions and attached to redmond catheter bag. Stat lock applied. Aseptic technique used for completely procedure. Addendum entered by Juanis Dubose RN 12/19/23 04:52: Received order: Please get a straight cath and if 250ml or more will need redmond replaced from Dr Eckert at [id number]. Original Note: Patient had redmodn catheter removed yesterday at 1800 for voiding trial. Patient has not voided since removal of catheter. Notified Dr. Colon via [employer] messenger at [phone].
--- NOTE | 2023-12-19 07:54 | PM.MISC ---
Miscellaneous Note Purpose of Documentation: Update on patient care Note: Patient is doing well, yesterday she is here to receive his first bolus feeding with good tolerance. Has been receiving medication through the PEG tube without issues. General surgery remains available as needed, will follow-up in 2 weeks in the clinic.
[2023-12-19] MEDS: ABACAVIR DOLUTEGRAVIR LAMIVUD 1 EACH PO (09:41)
--- NOTE | 2023-12-19 10:01 | PC.SOCIAL ---
IMM Update pg2 of IMM updated and reviewed w/ patient. Copy provided and copy dated, initialed and placed in chart.
--- NOTE | 2023-12-19 10:49 | PM.DCS ---
Discharge Providers Date of Admission: 12/11/23 02:07 Date of Discharge: December 19, 2023 Attending Provider at Admission: Betito Arellano MD Attending Provider at Discharge: Erika Wells MD Diagnoses at Discharge Discharge Diagnosis (1) Hypernatremia: Status: Acute (2) Encephalopathy: Status: Acute (3) Compression fracture of L1 lumbar vertebra: Status: Acute (4) Dysphagia: Status: Acute (5) Hypomagnesemia: Status: Acute (6) Hypophosphatemia: Status: Acute Reason for Visit Reason for Visit: Fall, Found Down Brief History: Bharat Buckley is a 73 year old male with a past medical history of HIV, history taking is difficult given patient's encephalopathy, deconditioning, who presents to [facility] for weakness, fatigue, malaise, being on the ground for possibly an entire week. Currently patient alert to person, not to place, to time, at times she does not follow commands, history taking is quite difficult as he is quite encephalopathic deconditioned very weak. He can answer yes or no questions at times but at other times she is quite encephalopathic, and confused. I cannot get a past medical history from him except that he says yes that he has HIV. He is not exactly clear if he is on treatment, and I cannot get as straightforward answer from him. I cannot get a past surgical history or family history or social history from him. There is no family members at bedside. According to ER provider, he has been on the ground for a prolonged period of time potentially a week. Patient lives at home with his , his daughter has not seen the family in over a week as she was on vacation. As per EMS, he had low blood pressures 1 dark tarry bowel movement. Was given 2 L bolus before arriving to ER. Blood pressure on arrival was 76/56, pulse is 97 Hospital Course Hospital Course 73-year-old male presented from home with generalized weakness and fatigue, he was diagnosed with type II IA, GI bleed. EGD showed duodenitis. He was extremely dehydrated with sodium of 161 due to poor appetite and was placed on D5. He was also not able to swallow not able to urinate and there was concern for cauda equina. X-ray lumbar spine showed L1 new fracture however being not a good surgical candidate he was started on IV Decadron for 5 days. He also was evaluated by speech and swallow and was diagnosed with dysphagia. Hence he got a PEG tube placement on 12/15 due to aspirating most of the food consistency. Modified barium swallow study showed penetration to most of the food consistency. Nutrition consulted and was started on tube feeds. Hypernatremia resolved. On 12/15 there were no signs of encephalopathy. He was able to carry on a conversation however with significant weakness and 4-5 words at a time. He was also evaluated by PT and was able to walk with the help of walker. Denied any complaint of back pain. Hence IV Decadron discontinued. He also received IV Zosyn prophylactically around PEG placement but he remained afebrile with no signs of infection. He is doing well tolerating feeds, has urinary retention hence Santoyo placed a day before discharge. Need outpatient management of Santoyo catheter with trial of void. Need bolus feeds for continuous nutrition. Physical Exam Narrative: He is alert awake oriented x 2, not in acute distress Chest clear to auscultation bilaterally Cardiovascular normal heart sounds Abdomen soft nontender nondistended normal bowel sounds, PEG in place Extremities no edema noted bilateral lower extremities Urinary Catheter Management: Santoyo Latex: Cath Placed During This Visit: yes, but has since been removed by the nurse Reason for Continuing Indwelling Catheter: Acute Urinary Retention or Obstruction Urinary Catheter Date of Insertion: 12/19/23 Urinary Catheter Time of Insertion: : Date Urinary Catheter Removed: 12/18/23 Time Urinary Catheter Discontinued: 18:00 Discharge Data Studies Completed and Pending Completed Studies During Hospitalization Category Date Time Status CT chest abdomen pelvis [[place] [id number] Cat Scan 12/10/23 22:45 Completed ] Stat CT head wo con* [id number] Stat Cat Scan 12/10/23 23:[address] lumbar spine wo con* [id number] Routine Cat Scan 12/14/23 16:50 Completed MBS [FL barium swallow modifd [id number]] Stat Exams 12/14/23 09:15 Completed Pathology: Surgical [PTH] Routine Pth 12/12/23 15:51 Completed CV. echo complete* [id number] Routine Ultrasound 12/11/23 02:44 Completed US renal BI* [id number] Routine Ultrasound 12/11/23 02:44 Completed Pending at discharge Category Date Time Status COVID [SARS Covid-2 Antigen] Routine Lab 12/19/23 06:00 Uncollected Radiology Impressions Chest/Abdomen/Pelvis CT 12/10/23 22:45 IMPRESSION: 1. Mild wall thickening involving the esophagus likely inflammatory. 2. COPD/emphysema. 3. Linear scarring or atelectasis involving the right upper lobe right middle lobe. 4. Tree-in-bud type opacity involving the right lower lobe likely inflammatory in origin. 5. Small pulmonary nodules bilaterally. For patients at low risk (minimal or absent history of smoking and of other known risk factors), no routine follow-up is indicated. For patients at high risk (history of smoking or of other known risk factors), consider optional CT Chest at 12 months. IMPRESSION: 1. Possible nodular wall thickening involving the rectum on the right laterally. If patient has not had a recent colonoscopy, further evaluation with endoscopy would be recommended. 2. Abnormal soft tissue in the presacral fat suspicious for tumor. There is also bilateral iliac chain and inguinal adenopathy likely pathologic. 3. Bilateral nephrolithiasis. 4. Bilateral mild hydronephrosis and hydroureter extending to a distended urinary bladder. There is a Santoyo catheter within the bladder. As well as a small bladder stone on the right. Head CT 12/10/23 23:03 IMPRESSION: 1. Negative for intracranial hemorrhage or mass effect. 2. Moderate diffuse white matter disease likely reflecting chronic microvascular ischemic changes. 3. Paranasal sinus opacification. Renal Ultrasound 12/11/23 02:44 IMPRESSION: 1. Chronic medical renal disease. Echogenic kidneys with no mass identified. 2. Mild LEFT hydronephrosis. Minimal splitting of the RIGHT renal pelvis. The hydronephrosis seen on the CT has decreased as visualized by ultrasound. This may be due to catheterization and emptying of the urinary bladder. Modified Barium Swallow 12/14/23 09:15 Impression: 1. Poor oral propulsion with premature spillage. 2. Significant residual in the hypopharynx which did not clear on multiple swallows. 3. Penetration and then minimal aspiration with all consistencies. Lumbar Spine CT 12/14/23 16:50 IMPRESSION: 1. Severe L1 compression fracture, possibly acute, stable since 12/10/2023. 2. Probably chronic T12 compression fracture. 3. Mild to moderate degenerative spinal stenosis, greatest at L4-L5. Mild lumbar disc and facet degeneration. 4. Bilateral hydronephrosis. 5. Bilateral common iliac lymphadenopathy. Laboratory Results WBC 8.90 10^3/uL (3.29-11.43) 12/17/23 02:38 RBC 2.86 10^6/uL (3.85-5.65) L 12/17/23 02:38 Hgb 9.40 g/dL (11.27-16.99) L 12/17/23 02:38 Hct 29.1 % (37-53) L 12/17/23 02:38 MCV 101.7 fl (82-101) H 12/17/23 02:38 MCH 32.9 pg (27-33) 12/17/23 02:38 MCHC 32.3 g/dL (30-55) 12/17/23 02:38 RDW 17.9 % (12.1-15.1) H 12/17/23 02:38 Plt Count 231 10^3/cmm (157-399) 12/17/23 02:38 MPV 11.2 fL (7.4-10.4) H 12/17/23 02:38 Neut % (Auto) 89.5 % 12/17/23 02:38 Lymph % (Auto) 6.4 % 12/17/23 02:38 [place] % (Auto) 3.4 % 12/17/23 02:38 Eos % (Auto) 0.0 % 12/17/23 02:38 Baso % (Auto) 0.1 % 12/17/23 02:38 Neut # (Auto) 7.97 10^3/uL (1.8-7.7) H 12/17/23 02:38 Lymph # (Auto) 0.6 10^3/uL (0.8-4.8) L 12/17/23 02:38 [place] # (Auto) 0.3 10^3/uL (0.2-0.9) 12/17/23 02:38 Eos # (Auto) 0.0 10^3/uL (0.0-0.8) 12/17/23 02:38 Baso # (Auto) 0.0 10^3/uL (0.0-0.1) 12/17/23 02:38 Absolute Lymphs (auto) 211 cells/uL (850-3900) L 12/10/23 22:08 Nucleated RBC % (auto) 0 % 12/17/23 02:38 Nucleated RBCs # 0.0 /100WBC 12/17/23 02:38 ESR 25 mm/hr (0-10) H 12/10/23 22:08 PT 15.60 SECONDS (12.1-14.9) H 12/11/23 02:19 INR 1.20 (0.8-1.2) 12/11/23 02:19 APTT 32.4 SECONDS (23.9-36.7) 12/11/23 02:19 Sodium 145 mmol/L (136-145) 12/18/23 03:45 Potassium 3.5 mmol/L (3.5-5.1) 12/18/23 03:45 Chloride 115 mmol/L (98-107) H 12/18/23 03:45 Carbon Dioxide 19 mmol/L (22-29) L 12/18/23 03:45 Anion Gap 14.5 (5-19) 12/18/23 03:45 BUN 18 mg/dL (8-23) 12/18/23 03:45 Creatinine 1.0 mg/dL (0.7-1.2) 12/18/23 03:45 GFR Calculation Not Reportable 12/18/23 03:45 Glucose 137 mg/dL (65-115) H 12/18/23 03:45 Estimat Average Glucose 105 12/10/23 22:08 Hemoglobin A1c 5.3 % (4.0-6.0) 12/10/23 22:08 Calculated Osmolality 304 mOsm/kg (285-295) H 12/18/23 03:45 Lactic Acid 1.1 mmol/L (0.5-2.2) 12/10/23 22:08 Calcium 7.6 mg/dL (8.5-10.5) L 12/18/23 03:45 Phosphorus 2.6 mg/dL (2.5-4.5) D 12/17/23 02:38 Magnesium 2.0 mg/dL (1.7-2.3) 12/17/23 02:38 Iron 22 ug/dL (59-158) L 12/12/23 11:59 TIBC 157 mcg/dl 12/12/23 11:59 % Saturation 14.0 % (20-50) L 12/12/23 11:59 Unsat Iron Binding 135 ug/dL (112-347) 12/12/23 11:59 Ferritin 302 ng/mL (30-400) 12/12/23 11:59 Total Bilirubin 0.2 mg/dL (0.15-1.2) 12/17/23 02:38 AST 51 U/L (0-40) H 12/17/23 02:38 ALT 30 U/L (0-41) 12/17/23 02:38 Alkaline Phosphatase 75 U/L (40-130) 12/17/23 02:38 Creatine Kinase 81 U/L (39-308) 12/14/23 03:46 Troponin T Baseline 216 ng/L (0-15) H* 12/10/23 22:08 Troponin T 120 Minute 212.8 ng/L (0-15) H 12/11/23 00:24 Delta Troponin T -3.2 ABS# (0-10) L 12/11/23 00:24 Troponin T Hi Sens 6Hr 223.8 ng/L (0-15) H 12/11/23 03:55 Troponin T Hi Sens 6Hr Delta 7.8 ng/L (0-12) 12/11/23 03:55 C-Reactive Protein 86.0 mg/L (0.0-4.9) H 12/11/23 02:19 Total Protein 6.1 g/dL (6.6-8.7) L 12/17/23 02:38 Albumin 3.2 g/dL (3.5-5.2) L 12/17/23 02:38 Globulin 2.9 g/dL (1.3-4.6) 12/17/23 02:38 Triglycerides 128 mg/dL (0-150) 12/11/23 02:19 Cholesterol 109 mg/dL (0-200) 12/11/23 02:19 LDL Cholesterol, Calc 49 mg/dL (50-129) L 12/11/23 02:19 HDL Cholesterol 34 mg/dL (60-100) L 12/11/23 02:19 LDL/HDL Ratio 1.44 RATIO (0.00-3.22) 12/11/23 02:19 Cholesterol/HDL Ratio 3.21 mg/dL (1.0-5.00) 12/11/23 02:19 Vitamin B12 1957 pg/mL (232-1245) H 12/12/23 11:59 Procalcitonin 0.43 ng/mL (0-0.5) 12/10/23 22:08 TSH 1.38 uIU/mL (0.27-4.20) 12/11/23 02:19 Urine Color Yellow (Yellow) 12/10/23 22:08 Urine Appearance Slightly cloudy (CLEAR) 12/10/23 22:08 Urine pH 5 (5-7) 12/10/23 22:08 Ur Specific [place] 1.020 (1.005-1.030) 12/10/23 22:08 Urine Protein Neg (Negative) 12/10/23 22:08 Urine Glucose (UA) Norm (Normal) 12/10/23 22:08 Urine Ketones 1+ (Negative) H 12/10/23 22:08 Urine Blood 3+ (Negative) H 12/10/23 22:08 Urine Nitrate Negative (Negative) 12/10/23 22:08 Urine Bilirubin Neg (Negative) 12/10/23 22:08 Urine Urobilinogen Neg mg/dL (Negative) 12/10/23 22:08 Ur Leukocyte Esterase Negative (Negative) 12/10/23 22:08 Urine RBC 25-40 /hpf (0-2) H 12/10/23 22:08 Urine WBC 5-10 /hpf (0-5) H 12/10/23 22:08 Ur Squamous Epith Cells None /hpf (0-5) 12/10/23 22:08 Amorphous Sediment Not Reportable 12/10/23 22:08 Urine Bacteria None /hpf (NONE) 12/10/23 22:08 Lymphocyte Subset Cmmnt Not Reportable 12/10/23 22:08 % CD3/CD4 Cells 22 % (30-61) L 12/10/23 22:08 Absolute CD4 Count 47 cells/uL (490-1740) L 12/10/23 22:08 CD4/CD8 Ratio 0.53 (0.86-5.00) L 12/10/23 22:08 % CD8 Cells 42 % (12-42) 12/10/23 22:08 Absolute CD8 Count 88 cells/uL (180-1170) L 12/10/23 22:08 Hepatitis A IgM Ab Non-reactive (Nonreactive) 12/10/23 22:08 Hep Bs Antigen Non-reactive (Nonreactive) 12/10/23 22:08 Hep B Core IgM Ab Non-reactive (Nonreactive) 12/10/23 22:08 Hepatitis C Antibody Non-reactive (Nonreactive) 12/10/23 22:08 HIV-1 RNA copies/mL Not detected (NOT DETECTED) 12/11/23 09:10 HIV-1 RNA (PCR) log10 Not detected copies/mL (NOT DETECTED) 12/11/23 09:10 HIV 1&2 Ab & HIV 1 Ag Non-reactive (Non-Reactiv) 12/10/23 22:08 HIV 1&2 Antibody Reactive (Non-Reactiv) H 12/10/23 22:08 Blood Type A Positive 12/11/23 13:10 Rho(D) Type Rh positive 12/11/23 13:10 Antibody Screen Negative 12/11/23 13:10 Crossmatch See Detail 12/11/23 13:[address] Abd/Pel: Radiologist's impression: IMPRESSION: 1. Mild wall thickening involving the esophagus likely inflammatory. 2. COPD/emphysema. 3. Linear scarring or atelectasis involving the right upper lobe right middle lobe. 4. Tree-in-bud type opacity involving the right lower lobe likely inflammatory in origin. 5. Small pulmonary nodules bilaterally. For patients at low risk (minimal or absent history of smoking and of other known risk factors), no routine follow-up is indicated. For patients at high risk (history of smoking or of other known risk factors), consider optional CT Chest at 12 months. IMPRESSION: 1. Possible nodular wall thickening involving the rectum on the right laterally. If patient has not had a recent colonoscopy, further evaluation with endoscopy would be recommended. 2. Abnormal soft tissue in the presacral fat suspicious for tumor. There is also bilateral iliac chain and inguinal adenopathy likely pathologic. 3. Bilateral nephrolithiasis. 4. Bilateral mild hydronephrosis and hydroureter extending to a distended urinary bladder. There is a Santoyo catheter within the bladder. As well as a small bladder stone on the right. CT Head: Radiologist's impression: IMPRESSION: 1. Negative for intracranial hemorrhage or mass effect. 2. Moderate diffuse white matter disease likely reflecting chronic microvascular ischemic changes. 3. Paranasal sinus opacification. US: Radiologist's impression: renal IMPRESSION: 1. Chronic medical renal disease. Echogenic kidneys with no mass identified. 2. Mild LEFT hydronephrosis. Minimal splitting of the RIGHT renal pelvis. The hydronephrosis seen on the CT has decreased as visualized by ultrasound. This may be due to catheterization and emptying of the urinary bladder. Other CT: Radiologist's impression: Lumbar spine CT showed IMPRESSION: 1. Severe L1 compression fracture, possibly acute, stable since 12/10/2023. 2. Probably chronic T12 compression fracture. 3. Mild to moderate degenerative spinal stenosis, greatest at L4-L5. Mild lumbar disc and facet degeneration. 4. Bilateral hydronephrosis. 5. Bilateral common iliac lymphadenopathy. Vitals Last Vital Signs Temp 97.8 F 12/19/23 07:41 Pulse 58 L 12/19/23 07:41 Resp 16 12/19/23 07:41 BP 130/56 12/19/23 07:41 Pulse Ox 94 12/19/23 07:41 O2 Del Method Room Air 12/19/23 07:41 O2 Flow Rate 4 12/16/23 08:26 Discharge Plan Discharge Patient Disposition: er SNF Condition: Stable Prescriptions: New sucralfate 100 mg/mL Suspension 1 g PO Q6H 5 Days Qty: 200 0RF Protonix 40 mg tablet,delayed release (DR/EC) 40 mg PO DAILY Qty: 14 0RF Continued lisinopril 10 mg tablet 10 mg PO DAILY ezetimibe 10 mg tablet 10 mg PO DAILY fenofibrate nanocrystallized 145 mg tablet 145 mg PO DAILY Triumeq 600-50-300 mg tablet 1 tab PO DAILY Discharge Orders: Discharge Order (Routine); Ordered 12/19/23 Ordered By: Erika Wells Referrals: [facility] [Outside] Discharge Diet: Start new tube feeds as directed Discharge Activity: Increase activity as tolerated Patient Instructions: Acute Wound Care (DC), GI Post Discharge Instructions w/ Anesthesia, Opioid Safety Activity Restrictions/Additional Instructions: For bolus feeds, recommend Jevity 1.5 with goal rate of 4 cartons (237mls each)/day with suggested regimen: 8am/ noon/ 4pm/ 8pm: 1 carton Jevity 1.5 (240mls) with 60mls FWF before and after bolus feed. If Pt losing weight or hungry, add 120-240mls to last feeding. Jevity 1.5 @ 4 cartons/day will provide 1440 kcals of 93% Pt's calorie needs, 60.4 grams protein or 89% Pt's estimated protein needs and 1200mls or 79% Pt's estimated fluid needs. Discharge Attestations Time Spent in Discharge Care*: less than 30 min Status at Discharge: Cognitive status at discharge: cognitively intact, Behavioral status at discharge: cooperative, Functional status at discharge: uses cane/walker, Overall status at discharge: patient is progressing back to baseline Quality Metrics Clinical Quality Measures [ No reported AMI, CVA or VTE this stay] Coding Level of Care Code Acute Code for Chg Fwd Diagnoses Hypernatremia E87.0 Encephalopathy G93.40 Compression fracture of L1 lumbar vertebra S32.010A Dysphagia R13.10 Hypomagnesemia E83.42 Hypophosphatemia E83.39 Time Spent (min) 20
[2023-12-19 11:14] LABS: SARS Covid-2 Antigen Negative (Negative)
--- NOTE | 2023-12-19 14:28 | PC.NURSE ---
Called report to Elizabeth Hernández LPN at [facility] at 1234
== END 2023-12-19 14:31 | disposition skilled nursing facility (03) | DRG 377 ==
LOC: ER 12-11 01:49 → ICU 12-11 02:08 → MEDSURG 12-14 18:00
PROVIDERS: Family Medicine; Internal Medicine; Student in an Organized Health Care Education/Training Program; Surgery; Admitting Provider Family Medicine; Emergency Provider Emergency Medicine; Visit Provider Internal Medicine
PROC: 0DJ08ZZ Inspection of Upper Intestinal Tract, Via Natural or Artificial Opening Endoscopic (ICD-10-PCS; CPT 43235; principal; 2023-12-12 15:00)
PROC: 0DH63UZ Insertion of Feeding Device into Stomach, Percutaneous Approach (ICD-10-PCS; CPT 43246; principal; 2023-12-16 08:00)
DX: K29.81 Duodenitis with bleeding (principal); E43 Unspecified severe protein-calorie malnutrition; I21.A1 Myocardial infarction type 2; G93.41 Metabolic encephalopathy; R57.1 Hypovolemic shock; N17.9 Acute kidney failure, unspecified; B20 Human immunodeficiency virus [HIV] disease; E87.0 Hyperosmolality and hypernatremia; M62.82 Rhabdomyolysis; N39.0 Urinary tract infection, site not specified; M48.56XA Collapsed vertebra, not elsewhere classified, lumbar region, initial encounter for fracture; E86.0 Dehydration; M62.84 Sarcopenia; K44.9 Diaphragmatic hernia without obstruction or gangrene; D53.9 Nutritional anemia, unspecified; D50.0 Iron deficiency anemia secondary to blood loss (chronic); E87.6 Hypokalemia; R13.19 Other dysphagia; R33.9 Retention of urine, unspecified; E83.39 Other disorders of phosphorus metabolism; R62.7 Adult failure to thrive; Z68.20 Body mass index [BMI] 20.0-20.9, adult; Z79.899 Other long term (current) drug therapy; Z88.2 Allergy status to sulfonamides
CPT/HCPCS: 36415; 36430; 36592; 43239; 51702; 70450; 71250; 72131; 74176; 74230; 76770; 80048; 80053; 80061; 80074; 81001; 82550; 82607; 82728; 83036; 83540; 83550; 83605; 83735; 84100; 84145; 84295; 84443; 84484; 85014; 85018; 85025; 85610; 85651; 85730; 86140; 86360; 86850; 86900; 86920; 87040; 87086; 87426; 87536; 87806; 88305; 92507; 92523; 92526; 92610; 92611; 93005; 93306; 94664; 97110; 97116; 97163; 97167; 97530; 97535; 99285; J0696; J1100; J2470; J2543; J2704; J3475; J3480; J7030; J7040; J7042; J7070; J7799; P9016; P9045

== ENCOUNTER → 2024-01-02 09:06 | Outpatient (BNVA) | payer MEDICARE, MEDICAID, SELFPAY | PROVIDERS: Visit Provider Surgery | DX: R13.10 Dysphagia, unspecified (principal) | CPT/HCPCS: 99213 ==

== ENCOUNTER → 2024-08-19 11:32 | Outpatient (BNVA) | payer MEDICARE, MEDICAID, SELFPAY | PROVIDERS: PCP Nurse Practitioner Family; Visit Provider Surgery | DX: Z93.1 Gastrostomy status (principal); R33.9 Retention of urine, unspecified; Z97.8 Presence of other specified devices | CPT/HCPCS: 81001; 87086; 99214 ==